=== PATIENT | male | born 1960 | race Caucasian/White ===

== ENCOUNTER 2017-03-12 23:44 | Inpatient (IN) ==
[2017-03-12] MEDS ORDERED: NS 1,000 ML IV ONE (23:48)
[2017-03-13 00:19] LABS: ALLEN TEST YES; BE 14.1 mmoll (-3.0-3.0); BLOOD TYPE ARTERIAL; DRAW SITE R BRACHIAL; METHB 1.1 % (0.0-1.5); O2(CT) 15.6 mL/dL (15.0-23.0); PO2(98.6) 73 mmHg (60-100); SAMPLE BLOOD; pH(98.6) 7.41 (7.35-7.45)
[2017-03-13 00:20] LABS: MODALITY NRB
[2017-03-13 00:22] LABS: PCO2(98.6) 66 mmHg (35-45)
[2017-03-13 00:30] LABS: BASO% 0.1 % (0.0-0.8); EOS# 0.01 X1000 (0.0-0.7); EOS% 0.1 % (0.0-10.0); HEMATOCRIT 42.2 % (42.0-52.0); HEMOGLOBIN 13.2 g/dL (14.0-18.0); IMM GRAN# 0.03 X1000 (0.0-0.04); IMM GRAN% 0.2 % (0.0-0.5); LYMPH% 1.8 % (20.5-51.1); MANUAL DIFF NEEDED? NO; MCH 30.3 PG (27-31); MCHC 31.3 g/dL (33-37); MCV 96.8 FL (81-99); MONO# 1.54 X1000 (0.11-0.59); MONO% 9.3 % (1.7-9.3); MPV 8.9 FL (7.4-10.4); NEUT% 88.5 % (42.2-75.2); PLT 264 X1000 (130-400); RBC 4.36 XMIL (4.7-6.1)
[2017-03-13 00:36] LABS: AGAP 12; ALBUMIN 2.9 g/dL (3.5-5.0); ALKALINE PHOSPHATASE 112 U/L (32-122); BUN 11 mg/dL (8-22); CALCIUM 8.6 mg/dL (8.8-10.2); CHLORIDE 87 mmol/L (98-107); CK PROFILE 19 U/L (24-204); COSMO 276; GOT 21 U/L (10-34); GPT 11 U/L (10-44); MAGNESIUM 2.2 mg/dL (1.5-2.7); POTASSIUM 4.1 mmol/L (3.5-5.1); SODIUM 136 mmol/L (136-145); TCO2 37 mmol/L (25-35); TOTAL BILIRUBIN 0.34 mg/dL (0.20-1.00); TOTAL PROTEIN 6.5 g/dL (6.3-8.3)
[2017-03-13 00:54] LABS: URINE SOURCE CATH
[2017-03-13 01:01] LABS: BILIRUBIN URINE NEGATIVE (NEGATIVE); BLOOD URINE NEGATIVE (NEGATIVE); COLOR YELLOW; GLUCOSE URINE TRACE mg/dL (NEGATIVE); LEUKOCYTES URINE NEGATIVE (NEGATIVE); NITRITE URINE NEGATIVE (NEGATIVE); PH URINE 6.5; PROTEIN URINE 50 mg/dL (NEGATIVE); TURBIDITY URINE CLEAR (CLEAR); URINE MICRO REVIEW NEEDED? YES; UROBILINOGEN URINE NORMAL (NORMAL)
[2017-03-13 01:07] LABS: UR EPITHELIAL CELLS >10 /HPF (<10); URINE BACTERIA NEGATIVE /HPF; URINE CULTURE NEEDED? YES; URINE RBC <10 /HPF (<10)
[2017-03-13 01:10] LABS: UR AMPHETAMINES QUAL NONE DETECTED (NONE DETECT); UR BARBITUATES QUAL NONE DETECTED (NONE DETECT); UR BENZODIAZEPIN QUAL PRESUMPTIVE POSITIVE (NONE DETECT); UR CANNABINOIDS QUAL PRESUMPTIVE POSITIVE (NONE DETECT); UR COCAINE QUAL NONE DETECTED (NONE DETECT); UR METHADONE QUAL NONE DETECTED (NONE DETECT); UR OPIATES QUAL NONE DETECTED (NONE DETECT); UR OXYCODONE QUAL PRESUMPTIVE POSITIVE (NONE DETECT); UR PCP QUAL NONE DETECTED (NONE DETECT)
[2017-03-13 01:19] LABS: URINE CASTS WHITE CELL PRESENT
--- NOTE | 2017-03-13 01:32 | PROVIDER DOCUMENTATION ---
This chart was entered by Kiki Hernández Scribe, acting as scribe for Spencer Boyd MD. HPI-General Adult - General Stated Complaint: PROBLEM BREATHING Time Seen by Provider: 03/12/17 23:45 Source: family, EMS Unable to obtain history due to:: urgency Allergies/Adverse Reactions: Patient Allergies Allergy/AdvReac Type Severity Reaction Status Date / Time fentanyl AdvReac Severe NAUSEA/VOMI Verified 03/13/17 01:07 TING Home Medications: Home Medication List Medication Instructions Recorded Confirmed Last Taken Type Alprazolam 2 mg PO TID PRN MDD 6 03/13/17 03/13/17 03/12/17 19:30 History Dronabinol [Marinol] 5 mg PO QAM 03/13/17 03/13/17 03/12/17 17:00 History Oxycodone HCl 30 mg PO 5XDAY 03/13/17 03/13/17 03/12/17 15:30 History Oxymorphone HCl [Oxymorphone HCl 15 mg PO DAILY 03/13/17 03/13/17 03/11/17 12: 00 History ER] - History of Present Illness -Gen Adult Nature of Presenting Problems: Per EMS, pt was found unresponsive by family. On EMS arrival, pt was unresponsive and breathing 8-9 times per minute. PT was given 4 MG of Zofran and 2 MG of Narcan with little response. En-route pt was given 2 more MG of Narcan. states that she went to visit daughter this evening and came home and the power was off. She states that pt was not acting right then. She states that she moved his oxygen over to the portable one. She states that pt went down from there. Onset/Duration: reports: unsure Timing: reports: still present Similar Symptoms Previously?: No Review of Systems - Adult - REVIEW OF SYSTEMS - ADULT ROS:: unobtainable per condition Constitutional: reports: no symptoms reported Eyes: reports: no symptoms reported Ears, Nose, Mouth & Throat: reports: no symptoms reported Cardiovascular: reports: no symptoms reported Respiratory: reports: no symptoms reported Gastrointestinal: reports: no symptoms reported Genitourinary: reports: no symptoms reported Musculoskeletal: reports: no symptoms reported Integumentary: reports: no symptoms reported Neurological: reports: no symptoms reported Psychiatric: reports: no symptoms reported Endocrine: reports: no symptoms reported Hematologic/Lymphatic: reports: no symptoms reported Allergic/Immunologic: reports: no symptoms reported All Other Systems: Reviewed and Negative Past History - Adult - PAST MEDICAL HISTORY-ADULT Review of Records: reports: Nursing Assessment Review Major Childhood Illnesses: reports: Polio - IMMUNIZATION STATUS Childhood Immunizations: See Nurse Assessment Flu Vaccine: See Nurse Assessment - SOCIAL HISTORY Living Situation: family Physical Exam-General - PHYSICAL EXAM-ADULT Initial Vital Signs Reviewed: Yes - CONSTITUTIONAL General Appearance: cachetic, obtunded - EYES Eyes: other (pupils are large but reactive) - RESPIRATORY Respiratory: lungs clear, normal breath sounds - CARDIOVASCULAR Cardiovascular: tachycardia - GASTROINTESTINAL (ABDOMEN) Abdominal Exam: soft - MUSCULOSKELETAL Extremity: no pedal edema - SKIN Integumentary: normal color, normal turgor, warm/dry Progress - PLAN OF CARE/RESULTS Progress/Plan/Lab Results: Vital Signs - 8 hr 03/12/17 23:50 03/13/17 01:11 03/13/17 01:13 Temperature 97.9 F Pulse Rate 115 H 104 H 123 H Respiratory Rate 15 38 H 26 H Blood Pressure 110/61 97/61 97/61 O2 Sat by Pulse Oximetry 98 99 98 Laboratory Results - last 24 hr 03/12/17 03/12/17 03/13/17 23:46 23:59 00:00 WBC 16.59 H RBC 4.36 L Hgb 13.2 L Hct 42.2 MCV 96.8 MCH 30.3 MCHC 31.3 L RDW Std Deviation 14.7 H Plt Count 264 MPV 8.9 Immature Gran % (Auto) 0.2 Neut % (Auto) 88.5 H Lymph % (Auto) 1.8 L [place] % (Auto) 9.3 Eos % (Auto) 0.1 Baso % (Auto) 0.1 Immature Gran # (Auto) 0.03 Neut # (Auto) 14.69 H Lymph # (Auto) 0.30 L [place] # (Auto) 1.54 H Eos # (Auto) 0.01 Baso # (Auto) 0.02 Specimen Type ARTERIAL Sample Site R BRACHIAL pH 7.41 pCO2 66 H* pO2 73 HCO3 35.6 H Base Excess 14.1 H Oxyhemoglobin 85.3 L* ABG O2 Sat (Calculated) 15.6 ABG O2 Saturation 98.0 ABG Carboxyhemoglobin 11.90 H* ABG Methemoglobin 1.1 Shawn Test YES A-a O2 Difference 558.0 Total Hemoglobin 13.0 Lactate 2.80 H Liter Flow 15.0 Blood Gas Modality NRB FiO2 % 100.0 Sodium Potassium Chloride Carbon Dioxide Anion Gap BUN Creatinine Estimated GFR/1.73 m2 BUN/Creatinine Ratio Glucose Calculated Osmolality Calcium Magnesium Total Bilirubin AST ALT Alkaline Phosphatase Ammonia Creatine Kinase Troponin T Total Protein Albumin Globulin Albumin/Globulin Ratio Urine Source Urine Color Urine Turbidity Urine pH Ur Specific [place] Urine Protein Ur Glucose (Stick) Ur Ketones (Stick) Urine Blood Urine Nitrite Urine Bilirubin Urobilinogen Dipstick Urine Leukocytes Urine WBC (Auto) Urine RBC (Auto) U Epithel Cells (Auto) Urine Bacteria (Auto) Urine Crystals Small Round Cells Urine Casts Urine Yeast-like Cells Urine Opiates Screen Ur Oxycodone Screen Ur Methadone, Qual Ur Barbiturates Screen Ur Phencyclidine Scrn Ur Amphetamines Screen U Benzodiazepines Scrn Urine Cocaine Screen U Cannabinoids Screen Plasma/Serum Ethyl Alc 03/13/17 03/13/17 03/13/17 00:00 00:00 00:00 WBC RBC Hgb Hct MCV MCH MCHC RDW Std Deviation Plt Count MPV Immature Gran % (Auto) Neut % (Auto) Lymph % (Auto) [place] % (Auto) Eos % (Auto) Baso % (Auto) Immature Gran # (Auto) Neut # (Auto) Lymph # (Auto) [place] # (Auto) Eos # (Auto) Baso # (Auto) Specimen Type Sample Site pH pCO2 pO2 HCO3 Base Excess Oxyhemoglobin ABG O2 Sat (Calculated) ABG O2 Saturation ABG Carboxyhemoglobin ABG Methemoglobin Shawn Test A-a O2 Difference Total Hemoglobin Lactate Liter Flow Blood Gas Modality FiO2 % Sodium 136 Potassium 4.1 Chloride 87 L Carbon Dioxide 37 H Anion Gap 12 BUN 11 Creatinine 0.8 Estimated GFR/1.73 m2 > 60 BUN/Creatinine Ratio 14 Glucose 182 H Calculated Osmolality 276 Calcium 8.6 L Magnesium 2.2 Total Bilirubin 0.34 AST 21 ALT 11 Alkaline Phosphatase 112 Ammonia 37 Creatine Kinase 19 L Troponin T 0.012 Total Protein 6.5 Albumin 2.9 L Globulin 3.6 Albumin/Globulin Ratio 0.8 Urine Source Urine Color Urine Turbidity Urine pH Ur Specific [place] Urine Protein Ur Glucose (Stick) Ur Ketones (Stick) Urine Blood Urine Nitrite Urine Bilirubin Urobilinogen Dipstick Urine Leukocytes Urine WBC (Auto) Urine RBC (Auto) U Epithel Cells (Auto) Urine Bacteria (Auto) Urine Crystals Small Round Cells Urine Casts Urine Yeast-like Cells Urine Opiates Screen Ur Oxycodone Screen Ur Methadone, Qual Ur Barbiturates Screen Ur Phencyclidine Scrn Ur Amphetamines Screen U Benzodiazepines Scrn Urine Cocaine Screen U Cannabinoids Screen Plasma/Serum Ethyl Alc 03/13/17 03/13/17 00:20 00:20 WBC RBC Hgb Hct MCV MCH MCHC RDW Std Deviation Plt Count MPV Immature Gran % (Auto) Neut % (Auto) Lymph % (Auto) [place] % (Auto) Eos % (Auto) Baso % (Auto) Immature Gran # (Auto) Neut # (Auto) Lymph # (Auto) [place] # (Auto) Eos # (Auto) Baso # (Auto) Specimen Type Sample Site pH pCO2 pO2 HCO3 Base Excess Oxyhemoglobin ABG O2 Sat (Calculated) ABG O2 Saturation ABG Carboxyhemoglobin ABG Methemoglobin Shawn Test A-a O2 Difference Total Hemoglobin Lactate Liter Flow Blood Gas Modality FiO2 % Sodium Potassium Chloride Carbon Dioxide Anion Gap BUN Creatinine Estimated GFR/1.73 m2 BUN/Creatinine Ratio Glucose Calculated Osmolality Calcium Magnesium Total Bilirubin AST ALT Alkaline Phosphatase Ammonia Creatine Kinase Troponin T Total Protein Albumin Globulin Albumin/Globulin Ratio Urine Source CATH Urine Color YELLOW Urine Turbidity CLEAR Urine pH 6.5 Ur Specific [place] 1.010 Urine Protein 50 A Ur Glucose (Stick) TRACE Ur Ketones (Stick) NEGATIVE Urine Blood NEGATIVE Urine Nitrite NEGATIVE Urine Bilirubin NEGATIVE Urobilinogen Dipstick NORMAL Urine Leukocytes NEGATIVE Urine WBC (Auto) 10-20 A Urine RBC (Auto) <10 U Epithel Cells (Auto) >10 A Urine Bacteria (Auto) NEGATIVE Urine Crystals Not Reportable Small Round Cells Not Reportable Urine Casts WHITE CELL PRESENT Urine Yeast-like Cells Not Reportable Urine Opiates Screen NONE DETECTED Ur Oxycodone Screen PRESUMPTIVE POSITIVE A Ur Methadone, Qual NONE DETECTED Ur Barbiturates Screen NONE DETECTED Ur Phencyclidine Scrn NONE DETECTED Ur Amphetamines Screen NONE DETECTED U Benzodiazepines Scrn PRESUMPTIVE POSITIVE A Urine Cocaine Screen NONE DETECTED U Cannabinoids Screen PRESUMPTIVE POSITIVE A Plasma/Serum Ethyl Alc Orders Category Date Time Status Cornelius Cath Insertion ORDERED Care 03/12/17 23:47 Active CHEST-PORTABLE [RAD] Stat Exams 03/12/17 23:45 Taken HEAD W/O CONTRAST [CT] Stat Exams 03/12/17 23:48 Taken ABG [RESP] Routine Lab 03/12/17 23:46 Completed ALCOHOL BLOOD Stat Lab 03/12/17 23:59 Completed AMMONIA [CHEM] Stat Lab 03/13/17 00:00 Completed CBC WITH ELECTRONIC DIFF [HEME] Stat Lab 03/13/17 00:00 Completed CK PROFILE [SP CHEM] Stat Lab 03/13/17 00:00 Completed CMP [COMPREHENSIVE METABOLIC PANEL] [CHEM] Stat Lab 03/13/17 00:00 Completed MAGNESIUM [CHEM] Stat Lab 03/13/17 00:00 Completed TROPONIN T Stat Lab 03/13/17 00:00 Completed UA NIMS W/REFLEX CULT [URINALYSIS] Stat Lab 03/13/17 00:20 Completed UDS [URINE DRUG SCREEN] Stat Lab 03/13/17 00:20 Completed URINE CULTURE [RM] Routine Lab 03/13/17 01:21 Received URINE MANUAL MICROSCOPIC [URINALYSIS] Stat Lab 03/13/17 00:20 Completed 0.9% Sodium Chloride Inj [Ns] 1,000 ml Med 03/12/17 23:48 Discontinued IV 999 mls/hr EKG [EKG] Stat Ther 03/12/17 23:47 Ordered Result Diagrams: 03/13/17 00:00 03/13/17 00:00 - EKG 1 Time of EKG reading by physician:: 23:41 EKG Read and Signed by:: Spencer Boyd EKG Interpretation (*Must complete 3 of following elements*): Abnormal Rate: 100 Rhythm: sinus tachycardia Comments: unable to read due to artifact - XRAY 1 XRAY Study: Chest Impression: Abnormal (COPD, questionable subtle right lower lobe infiltrate: Dr. Boyd(ER MD)) - CT/MRI 1 CT Study: Head Impression: Abnormal (Normal intracranial contents. Possible lytic metastatic lesion in the right frontal bone: Dr. Mcneal(radiologist)) - CONSULTS/PCP/HOSPITALIST Notification #1 *Consult/PCP/Hospitalist*: Dr. Lundberg(hospitalist) Time Discussed: 01:22 Reason/Comments: consult for admission Consult Disposition: Will see in ED, Admit Departure - Departure Date of Disposition Decision: 03/13/17 Time of Disposition Decision: 01:30 DIAGNOSIS: Altered mental status Qualifiers: Altered mental status type: stupor Qualified Code(s): R40.1 - Stupor Lung cancer Qualifiers: Laterality: unspecified laterality Lung location: unspecified part of lung Qualified Code(s): C34.90 - Malignant neoplasm of unspecified part of unspecified bronchus or lung COPD (chronic obstructive pulmonary disease) Qualifiers: COPD type: unspecified COPD Qualified Code(s): J44.9 - Chronic obstructive pulmonary disease, unspecified Disposition: ADMITTED INPATIENT 09 Certified Medical Emergency: Emergent Condition: Fair Referrals and Follow-Ups: Antonio Diaz MD [Primary Care Provider] - - Critical Care Note This patient required my direct & personal management of CC.: No Attestation - Physician/ NIGEL Attestation Patient care was provided by Advanced Practice Provider:: No The physician spent face to face time with patient:: Yes Advanced Practice Provider documentation review:: Supervising physician onsite and consulted in the evaluation and care of this patient. The physician did have a face to face encounter with the patient. This chart was documented by the indicated scribe, (Kiki Hernández Scribe) and accurately reflects the services I performed and decisions made by me, Spencer Boyd MD, as attested by the provider's signature.
[2017-03-13] MEDS ORDERED: NS 1,000 ML IV ONE ×2 (01:42→02:11)
[2017-03-13] MEDS ORDERED: SOLU-CORTEF IV ONE (01:46)
[2017-03-13] MEDS ORDERED: LANOXIN IV ONE ×2 (01:47→06:00)
--- NOTE | 2017-03-13 02:15 | ED EKG INTERP ---
This chart was entered by Kiki Hernández Scribe, acting as scribe for Spencer Boyd MD. EKG Interpretation - EKG Time of EKG reading by physician:: 01:45 EKG Read and Signed by:: Spencer Boyd EKG Interpretation (*Must complete 3 of following elements*): Abnormal Rate: 146 Rhythm: a-fib with RVR [place]: normal QRS: normal ST Wave: non-specific ST changes Attestation - Physician/ NIGEL Attestation Patient care was provided by Advanced Practice Provider:: No The physician spent face to face time with patient:: Yes Advanced Practice Provider documentation review:: Supervising physician onsite and consulted in the evaluation and care of this patient. The physician did have a face to face encounter with the patient. This chart was documented by the indicated scribe, (Kiki Hernández Scribe) and accurately reflects the services I performed and decisions made by me, Spencer Boyd MD, as attested by the provider's signature.
[2017-03-13] MEDS ORDERED: ZOFRAN IV PRN (02:28)
[2017-03-13] MEDS ORDERED: NEO-SYNEPHRINE 50 MG in NS 250 ML IV SCH (03:00)
[2017-03-13] MEDS: LOVENOX SUBQ SCH (03:00)
[2017-03-13] MEDS: PROTONIX IV SCH (03:01)
[2017-03-13] MEDS: NS 1,000 ML IV SCH ×3 (04:13→21:44)
[2017-03-13] MEDS ORDERED: DUONEB (A & A) INH PRN (06:49)
--- NOTE | 2017-03-13 07:20 | PROGRESS NOTE ---
DATE: 03/13/2017 A 57-year-old, white gentleman, admitted with acute respiratory failure, altered mental status. The patient was found hypoxemic, unresponsive and brought to the emergency room. Evaluated by ER physician. Admitted for further care. The patient is doing fair. The patient is still sedated. Not able to give good history. Patient did have mild cough, no unusual expectoration. No nausea or vomiting. The patient did have mild chills no high-grade fever. Known case of lung cancer, gastritis, chronic pain, post-polio syndrome. PHYSICAL EXAMINATION: Vital signs: Noted. Patient was tachycardic. Neck: Supple. No JVD. Lungs: Bibasilar crepitations. Heart: S1 and S2. Tachycardia. Abdomen: Soft, nontender. Bowel sounds present. 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 ADMISSION LABORATORY DATA: Noted. The patient's urinalysis did reveal 10-20 WBC. Urine drug screen results reviewed. CONSIDERATION.: 1. Respiratory failure. 2. Chronic obstructive pulmonary disease. 3. History of lung cancer. 4. Urinary tract infection. 5. Gastritis. The patient had paroxysmal atrial fibrillation. Overall patient is doing fair. Overall prognosis fair to guarded. I am going to add antibiotics. Patient is already on steroid bronchodilator treatment. Oncologist is going to see the patient. We will check appropriate labs tomorrow. cc: Antonio Diaz MD
--- NOTE | 2017-03-13 07:31 | Diag Imaging Result Doc PS360 ---
EXAM: HEAD W/O CONTRAST - 03/12/2017 HISTORY: ams TECHNIQUE: Dose reduction protocol COMPARISON: None. FINDINGS: There is no evidence of intracranial hemorrhage, mass effect, midline shift, or hydrocephalus. There is no evidence of infarct, although acute infarcts may not be immediately visible. There is an ill-defined 1.2 x 0.6 mm lucent lesion in the right frontal bone. IMPRESSION: Ill-defined 1.2 x 0.6 lucent lesion right frontal bone. This is of uncertain etiology, although metastatic lesion may be a consideration. No visible acute intracranial abnormality otherwise. No hemorrhage or mass effect. The integration engineer radiologist provided primary results at 1:11 AM on 03/13/2017. Electronically signed by Matt Dozier 03/13/2017 7:29 AM
--- NOTE | 2017-03-13 07:35 | EKG Report ---
Test Performed on : 03/13/2017 01:34:23 AM Test Reason : ams Blood Pressure : / mmHG Vent. Rate : 153 BPM Atrial Rate : 060 BPM P-R Int : 000 ms QRS Dur : 076 ms QT Int : 314 ms P-R-T Axes : 000 091 047 degrees QTc Int : 501 ms Atrial fibrillation. with rapid ventricular response. Rightward axis T wave abnormality, consider anterior ischemia Abnormal ECG When compared with ECG of 12-MAR-2017 23:41, (Unconfirmed) Significant changes have occurred Unconfirmed Result
--- NOTE | 2017-03-13 07:35 | EKG Report ---
Test Performed on : 03/12/2017 11:41:37 PM Test Reason : SOB Blood Pressure : / mmHG Vent. Rate : 100 BPM Atrial Rate : 100 BPM P-R Int : 184 ms QRS Dur : 064 ms QT Int : 332 ms P-R-T Axes : 063 088 065 degrees QTc Int : 428 ms Sinus rhythm. with occasional premature ventricular complexes. and premature atrial complexes. Right atrial enlargement Septal infarct , age undetermined Inferior injury pattern ACUTE [place] / STEMI Abnormal ECG No previous ECGs available Unconfirmed Result
--- NOTE | 2017-03-13 07:40 | Diag Imaging Result Doc PS360 ---
EXAM: CHEST-PORTABLE INDICATION: ams TECHNIQUE: One view COMPARISON: None. FINDINGS: A right chest port is in place with the tip projecting over the region of the atriocaval junction in the expected position. There are mild increased interstitial markings bilaterally; however, this may represent mild fibrotic change. No well-defined airspace consolidation can be identified. There is no discrete pleural fluid collection or pneumothorax. The cardiomediastinal silhouette and central vasculature are grossly unremarkable. IMPRESSION: Mild coarse increased interstitial markings bilaterally that may be chronic. Correlate clinically and follow-up if necessary. Electronically signed by Wayne Montenegro 03/13/2017 7:37 AM
[2017-03-13 07:46] LABS: HEMATOCRIT 37.2 % (42.0-52.0); HEMOGLOBIN 11.5 g/dL (14.0-18.0); IMM GRAN# 0.02 X1000 (0.0-0.04); IMM GRAN% 0.1 % (0.0-0.5); LYMPH# 0.33 X1000 (1.2-3.4); LYMPH% 2.4 % (20.5-51.1); MANUAL DIFF NEEDED? YES; MCH 29.9 PG (27-31); MCHC 30.9 g/dL (33-37); MCV 96.9 FL (81-99); MONO# 0.19 X1000 (0.11-0.59); MONO% 1.4 % (1.7-9.3); MPV 8.7 FL (7.4-10.4); NEUT% 96.1 % (42.2-75.2); PLT 286 X1000 (130-400); RBC 3.84 XMIL (4.7-6.1)
[2017-03-13 07:52] LABS: AGAP 6; ALBUMIN 2.4 g/dL (3.5-5.0); ALKALINE PHOSPHATASE 85 U/L (32-122); BUN 9 mg/dL (8-22); CALCIUM 7.8 mg/dL (8.8-10.2); CHLORIDE 96 mmol/L (98-107); COSMO 272; GOT 14 U/L (10-34); GPT 8 U/L (10-44); MAGNESIUM 1.8 mg/dL (1.5-2.7); POTASSIUM 4.2 mmol/L (3.5-5.1); SODIUM 136 mmol/L (136-145); TCO2 34 mmol/L (25-35); TOTAL BILIRUBIN 0.26 mg/dL (0.20-1.00); TOTAL PROTEIN 5.3 g/dL (6.3-8.3)
[2017-03-13] MEDS: ROCEPHIN 1 GM/NS 1 GM/50 ML IVPB IV SCH (07:56)
[2017-03-13 08:11] LABS: BANDS 6 % (0-1); LYMPHS 2 % (21-51); MONO 2 % (1-9)
[2017-03-13] MEDS: SOLU-CORTEF IV SCH ×2 (09:35→18:07)
[2017-03-13] MEDS: ADVAIR 250/50 DISKUS INH SCH ×2 (10:54→19:01)
--- NOTE | 2017-03-13 14:36 | Diag Imaging Result Doc PS360 ---
EXAM: MRI BRAIN W W/O CONTRAST - 03/13/2017 HISTORY: r/o lesion TECHNIQUE: Images are obtained prior to and following Omniscan administration. COMPARISON: 05/30/2016 FINDINGS: There are artifacts from motion which limit detail, particularly on the contrast-enhanced images. There are mild chronic microvascular ischemic changes. The diffusion weighted images show no areas of restricted diffusion (no evidence of acute infarct). There is no hemorrhage, mass effect, midline shift, or hydrocephalus identified. There is no abnormal enhancement identified. The lucent lesion at the right frontal bone which was seen on the earlier CT head from today (03/13/2017) is less apparent on this exam, but this could relate to greater sensitivity of CT for detecting small lucent skull lesions. IMPRESSION: Some limitation of detail due to artifacts from motion. Mild chronic microvascular ischemic changes. No visible acute intracranial abnormality. Electronically signed by Matt Dozier 03/13/2017 2:34 PM
[2017-03-13] MEDS: DUONEB (A & A) INH PRN (15:22)
--- NOTE | 2017-03-13 16:58 | CONSULTATION ---
DATE OF CONSULTATION: 03/13/2017 CONSULTATION IS FOR: Non-small cell lung cancer, patient known. HISTORY OF PRESENT ILLNESS: Mr. Nunes is a 57-year-old male who is known to us as we have treated him for non-small cell lung cancer. He has most recently been our office on 03/02/2017 at which time he was doing well. He has had some recent scans on which showed no evidence of residual disease. The patient is status post chemoradiation and then most recently stereotactic radiation. The patient was at home with his . He is on home O2. His reports that she had left the home for awhile when the electricity went out in the entire neighborhood. The patient was using oxygen machine that was powered by electricity. The reports she rushed home to make sure that he transitioned to a portable oxygen tank. Around that time she said that he was acting somewhat confused. She then reports as night went on he started to get more and more confused. She continue to check his O2 saturation and reports that when she called the ambulance it was down into the 50s. The patient was transferred to the hospital. He is now in the ICU. Head CT has been completed and does show him to have a 1.2 x 0.6 right frontal bone lesion. Patient is also found to be in atrial fibrillation with RVR upon presentation. Chest x-ray shows some mild coarse increased interstitial markings bilaterally that may be chronic. PAST MEDICAL HISTORY: 1. COPD. 2. Peripheral vascular disease. 3. Chronic back pain. 4. Anxiety. 5. Gastritis. 6. Postpolio syndrome. 7. Nonmelanoma skin cancer. 8. Non-small cell lung cancer. SURGICAL HISTORY: Femoral artery bypass in 2016. SOCIAL HISTORY: Patient is and lives with his . He has 3 children. He is a current every day smoker. He smoked for the past 44 years about 1 and half packs per day. The patient is a former alcohol user but stopped drinking in 2005. Denies any illicit drug use. FAMILY HISTORY: His mother at the age of 42 with breast cancer. His father at the age of 52 of heart disease. He has 1 brother who at the age of 62 with lymphoma. REVIEW OF SYSTEMS: Ten point review of systems has been completed and is negative except for is as per the HPI. PHYSICAL EXAMINATION: Vital Signs: Temperature 98.7 degrees, heart rate 56, respirations 19, blood pressure 105/55, O2 saturation 95% on 4 L nasal cannula. General: Thin male lying in hospital bed in the intensive care unit. He is resting comfortably. Does not appear to be agitated. HEENT: Head appears to be normocephalic, normocephalic atraumatic. Pupils are equal, round, reactive. Neck is supple. Oral mucosa appears to be normal. Cardiovascular: Irregularly irregular. Respiratory: Patient has bilateral coarse breath sounds with some wheezing. Abdomen: Soft, nontender. Positive bowel sounds. Musculoskeletal : Postpolio syndrome changes noted. No edema noted. Neurologic: Patient is arousable and when he is he is alert and oriented. No focal motor deficits noted. LABS AND STUDIES: White blood cells 13.67, hemoglobin 11.5, hematocrit 37.2, platelets 286,000. Sodium 136, potassium 4.2, chloride 96, CO2 is 34, BUN is 9, creatinine 0.6, glucose 114. Chest x- ray and CT scan as per the HPI. ASSESSMENT AND PLAN: 1. Non-small cell squamous cell lung cancer. Patient is now status post chemoradiation which he had his last chemo treatment on 07/17/2016 and finished his 1st radiation . He completed stereotactic radiation on 12/31/2016. Most recent scan a couple weeks ago noted that he had no evidence of residual or recurrent disease. 2. Respiratory failure. Patient will continue on O2 support. He is also receiving antibiotics, nebulizer treatments and IV steroids. 3. Chronic obstructive pulmonary disease. As per above. 4. Right frontal bone lesion. He still has to get a brain MRI which has been ordered but has not been completed yet. Follow up on the results. 5. Urinary tract infection. Continue IV antibiotics. 6. Gastritis. Continue on GI prophylaxis. 7. Paroxysmal atrial fibrillation. Continue Cardizem drip. Consider Cardiology consultation. The patient has also received digoxin. We want to thank you for consulting us on Mr. Nunes. Will continue to follow along and adjust our treatment plan per his hospital course. Dictated by TAMARA Hubbard for Galina Rollins MD cc: MD Antonio Simon MD I have seen and examined the patient and agree with above A/P. MRI pending. No clear evidence of residual or recurrent lung cancer unless those results confirm a bony lesion. Galina Rollins MD [facility]
--- NOTE | 2017-03-13 18:22 | ECHO REPORT ---
ORDER DATE: 03/13/2017 INTERPRETING PHYSICIAN: Dr. Olivas REQUESTING PHYSICIAN: CLINICAL INDICATIONS: Atrial fibrillation with rapid response, respiratory failure. M-MODE MEASUREMENTS: Right ventricle: 3.0 cm. Left ventricle end diastole: 4.7 cm. Left ventricle end systole: 3.4 cm. Posterior wall: 0.8 cm. Interventricular septum: 0.8 cm. Left atrium: 3.5 cm. Aortic root: 3.6 cm. SUMMARY OF 2-DIMENSIONAL IMAGING: The left ventricular function appears to be normal. Ejection fraction is somewhere in the range of 55-60%. No wall motion abnormality is noted. The right ventricle is enlarged moderately and it shows impairment of its free wall. The basal to midportion of the free wall of the right ventricle is hypokinetic to even akinetic. The true apical segment of the right ventricle appears to be slightly hyperdynamic. The inferior vena cava is mildly enlarged. The tricuspid valve shows a mild degree of regurgitation. Pulmonary pressure estimated at 52-57 mmHg. The pulmonic valve appears to be grossly normal. The aortic valve has 3 cusps. They open normally. Color flow mapping unremarkable. The mitral valve looks normal. Color flow mapping unremarkable. Pulse wave Doppler of mitral inflow is normal. Tissue Doppler of septal and lateral mitral annulus averages 9 cm per second. There is no diastolic dysfunction. There is no pericardial effusion, masses or thrombus. IMPRESSION: In summary, this study shows: 1. Normal left ventricular systolic function. 2. Enlargement of right ventricle of moderate degree with hypokinesis of the midsegment of the free wall. 3. Moderate pulmonary hypertension estimated to be in the range of 52-57 mmHg. 4. No diastolic dysfunction. Clinical correlation recommended. cc: MD Maverick Foster CRNP Bharat K. Vakharia, MD
[2017-03-13] MEDS ORDERED: DILAUDID IV PRN (20:00)
[2017-03-13] MEDS: OXY IR PO PRN (23:55)
--- NOTE | 2017-03-14 02:41 | HISTORY AND PHYSICAL ---
CHIEF COMPLAINT: Difficulty breathing. PRIMARY CARE PROVIDER: Dr. Diaz. ONCOLOGIST: Dr. Galina Rollins. HISTORY OF PRESENT ILLNESS: Mr. Nunes is an unfortunate 57-year-old male with a history of a right small cell lung cancer. He was apparently treated with chemotherapy for a couple of treatments and then had difficulties and was ultimately stopped. He then underwent several radiation treatments by Dr. Mejia which I believe he finished in August of this year. He has been on chronic pain medications. He has been on multiple opioid pain medications and today per EMS the patient was found unresponsive by the family. When EMS arrived, patient was breathing around 8 times per minute. He was given Narcan and Zofran which were was not effective. En route, the patient was given 2 more milligrams of Narcan. While in the emergency room, the patient's heart rate elevated and he converted into atrial fibrillation with a rapid ventricular rate and became hypotensive. He had received a CT scan of the head at that time which showed a possible lytic lesion in the right frontal bone. At any rate, fluid bolusing was administered in the emergency room as well as a dose of digoxin and Solu-Cortef. He will be admitted to ICU for further evaluation and treatment. PAST MEDICAL HISTORY: 1. Right small cell lung cancer. 2. COPD. 3. Severe peripheral vascular disease. 4. Chronic back pain. 5. Anxiety. 6. Gastritis. 7. Situational depression. 8. Post-polio syndrome. PAST SURGICAL HISTORY: Right femoral-femoral bypass in early 2015. FAMILY HISTORY: Mother had breast cancer, at I believe age 42. Father with myocardial infarction in his 50s as well as TB. SOCIAL HISTORY: , lives with his . Continues to smoke. Has been a long-standing heavy smoker. No alcohol or illicit drug use or abuse. ALLERGIES: Fentanyl and morphine. HOME MEDICATIONS: 1. Oxymorphone HCl 15 mg p.o. 2. Oxycodone 30 mg p.o. 5 times daily. 3. Alprazolam 2 mg p.o. t.i.d. p.r.n. 4. Marinol 5 mg p.o. q.a.m. 5. Phenergan 25 mg p.o. q.6 p.r.n. REVIEW OF SYSTEMS: Fourteen point review of systems could not be obtained as patient is obtunded in the emergency room. Pertinent positives for admission are listed above in the HPI. PHYSICAL EXAMINATION: VITAL SIGNS: Temperature 97.9 degrees, pulse 140s, atrial fibrillation, respirations 22, blood pressure on arrival was 110/61 and as low as 66/48. Oxygen saturation 92% on 6 L nasal cannula. GENERAL: Unfortunate 57-year-old male lying in the ER stretcher obtunded. Family at bedside. Chronically ill-appearing. HEENT: Head is atraumatic, normocephalic. Pupils 3 cm and sluggishly reactive but noted to be miotic. Extraocular eye movement could not be assessed. Sclerae anicteric. Oral mucosa is dry. NECK: Supple. No JVD. Trachea is midline. No carotid bruit on auscultation. CARDIAC: Irregularly irregular. No murmurs, gallops, rubs. Heart tones are noted to be very distant. LUNGS: Decreased bilaterally. No rhonchi, wheezes or rales. Symmetrical rise and fall with respirations. ABDOMEN: Scaphoid and nontender. Bowel sounds hypoactive all 4 quadrants. No organomegaly. No pulsatile mass. EXTREMITIES: No clubbing, cyanosis. Bilateral pedal pulses very decreased. NEUROLOGICAL: The patient is responsive to pain, otherwise obtunded. DIAGNOSTIC DATA: WBC 16.59, hemoglobin 13.2, hematocrit 42.2, platelet count 264,000. ABG: pH 7.41, pCO2 66, PO2 73, bicarb 35.6. Sodium 136, potassium 4.1, chloride 87, carbon dioxide 37, BUN 11, creatinine 0.8, glucose 182. Urine unremarkable. Toxicology screen positive for oxycodone, benzodiazepine and cannabinoids. CT of the head showed an ill- defined 1.2 x 0.60 lytic lesion to the right frontal bone but no acute intracranial abnormality. Chest x -ray, chronic COPD changes. ASSESSMENT AND PLAN: 1. Toxic encephalopathy, possibly secondary to narcotic use secondary to lung cancer. Altered mental status could also be secondary to metastatic disease. An MRI will be needed to rule this out. 2. Right small cell lung cancer. Brief chemotherapy was attempted. Patient did complete radiation treatment. We will consult Dr. Galina Rollins. 3. Chronic obstructive pulmonary disease without exacerbation. 4. History of post-polio syndrome. 5. Chronic pain syndrome. 6. Anxiety with situational depression. 7. New onset atrial fibrillation with a rapid ventricular rate. PLAN: Aggressive IV hydration was started in the emergency room. We will continue fluids in ICU. As noted above, we will consult Dr. Galina Rollins. Dr. Diaz, his primary care provider, will resume care in the morning. Continue Solu-Cortef 50 mg IV q.8 hours. MRI will likely be needed in a.m. to differentiate reasons for altered mental status. We will order Nico- Synephrine if needed for hypotension. We will hold pain medication at this time. Digoxin was given in the emergency room. We will give an additional dose to be repeated in 4 hours if heart rate is still greater than 110. Further recommendations per patient clinical course history. CRITICAL CARE TIME: On this patient, 45 minutes. Dictated by LIBBY Cartwright for Almita Lundberg MD Seen and examined pt ; discussed case with DRAWING CHECKER. cc: MD Maverick Simon CRNP [place] P. Akinsoto, MD Bharat K. Vakharia, MD MTDD
[2017-03-14] MEDS: SOLU-CORTEF IV SCH (02:54)
[2017-03-14] MEDS: LOVENOX SUBQ SCH ×2 (02:55→23:47)
[2017-03-14] MEDS: PROTONIX IV SCH ×2 (02:55→23:47)
[2017-03-14] MEDS: CARDIZEM 100 MG/NS 100 MG/100 ML IVPB IV SCH ×2 (03:02→05:44)
[2017-03-14 04:52] LABS: ALLEN TEST YES; BE 6.3 mmoll (-3.0-3.0); BLOOD TYPE ARTERIAL; DRAW SITE R RADIAL; METHB 0.2 % (0.0-1.5); O2(CT) 18.8 mL/dL (15.0-23.0); PO2(98.6) 73 mmHg (60-100); SAMPLE BLOOD; SAO2 98.8 % (95.0-100.0); THB 14.1 g/dL (11.5-17.4); pH(98.6) 7.37 (7.35-7.45)
[2017-03-14 04:53] LABS: MODALITY VENTIMASK; PCO2(98.6) 58 mmHg (35-45)
[2017-03-14 05:14] LABS: HEMATOCRIT 34.7 % (42.0-52.0); HEMOGLOBIN 10.9 g/dL (14.0-18.0); LYMPH# 0.47 X1000 (1.2-3.4); LYMPH% 5.1 % (20.5-51.1); MANUAL DIFF NEEDED? NO; MCHC 31.4 g/dL (33-37); MCV 95.6 FL (81-99); MONO# 0.52 X1000 (0.11-0.59); MONO% 5.7 % (1.7-9.3); MPV 8.8 FL (7.4-10.4); NEUT% 89.2 % (42.2-75.2); PLT 249 X1000 (130-400); RBC 3.63 XMIL (4.7-6.1)
[2017-03-14 05:34] LABS: AGAP 8; ALBUMIN 2.1 g/dL (3.5-5.0); ALKALINE PHOSPHATASE 66 U/L (32-122); BUN 11 mg/dL (8-22); CALCIUM 7.5 mg/dL (8.8-10.2); CHLORIDE 98 mmol/L (98-107); COSMO 279; GOT 12 U/L (10-34); GPT 6 U/L (10-44); MAGNESIUM 1.8 mg/dL (1.5-2.7); POTASSIUM 3.7 mmol/L (3.5-5.1); SODIUM 139 mmol/L (136-145); TCO2 33 mmol/L (25-35); TOTAL BILIRUBIN 0.15 mg/dL (0.20-1.00); TOTAL PROTEIN 4.2 g/dL (6.3-8.3)
[2017-03-14] MEDS: NS 1,000 ML IV SCH ×3 (05:45→21:56)
[2017-03-14] MEDS ORDERED: PHENERGAN PO PRN (06:37)
[2017-03-14] MEDS: SOLU-MEDROL IV SCH ×3 (07:04→21:56)
[2017-03-14] MEDS: ROCEPHIN 1 GM/NS 1 GM/50 ML IVPB IV SCH (07:05)
[2017-03-14] MEDS: CARAFATE LIQUID PO SCH ×4 (07:15→23:46)
[2017-03-14] MEDS: ADVAIR 250/50 DISKUS INH SCH ×2 (08:12→23:14)
[2017-03-14] MEDS: NICODERM PATCH TD PRN (08:16)
[2017-03-14] MEDS: MARINOL PO SCH (08:17)
[2017-03-14] MEDS: XANAX PO PRN (08:17)
[2017-03-14] MEDS: OXY IR PO PRN ×3 (08:23→23:44)
[2017-03-14] MEDS ORDERED: OXYCODONE HCL 30 MG PO SCH (09:00)
--- NOTE | 2017-03-14 10:01 | PROGRESS NOTE ---
DATE: 03/14/2017 A 57-year-old gentleman admitted with altered mental status, hypoxemia. Admission history and physical noted. The patient is doing much better, more alert and awake. Complaining of chronic pain. Oxygenation is better. No nausea or vomiting. Patient did have at time bradycardia, but patient was asymptomatic. No diarrhea, blood, or mucus in the stool. Oncology consult reviewed. PAST MEDICAL HISTORY: Significant for lung cancer, chronic pain, gastritis, peripheral vascular disease, situational depression, post-polio syndrome. CURRENT MEDICATIONS: Noted. PHYSICAL EXAMINATION: Vital Signs: Reviewed. Neck: Supple. No JVD. Lungs: Bibasilar crepitations. Occasional wheezing. Cardiovascular: S1 and S2 heard. Bradycardia. Abdomen: Soft, scaphoid. Bowel sounds present. Extremities: No cyanosis, clubbing. No acute DVT. Central Nervous System: Alert, awake. Answering questions fairly well. LABORATORY DATA: Done today, hemoglobin 10.9, hematocrit 34.7, WBC count 9.17. Platelet count 249. Blood gas: pH 7.37, pCO2 58, PO2 was 73. Electrolytes fairly benign. CONSIDERATION: Acute hypoxemic respiratory failure, chronic obstructive pulmonary disease, gastritis, lung cancer, chronic pain, bronchitis. The patient's CT of the head was abnormal. We did an MRI, which did reveal chronic microvascular ischemic changes. Chest x-ray was mild increase in interstitial markings bilaterally, which could be chronic. PLAN: Patient is on IV steroid. I put him on antibiotics, pulmonary toilet. We will continue current treatment. I am going to transfer him to telemetry bed. Overall plan discussed with the patient and family, and they are in agreement. Will do a NicoDerm patch. cc: Antonio Diaz MD
[2017-03-14] MEDS: PATIENT'S OWN MED PO SCH (10:16)
[2017-03-14] MEDS: SODIUM CHLORIDE 0.9% INJ SCH (23:47)
[2017-03-15] MEDS: LOVENOX SUBQ SCH ×2 (04:19→23:34)
[2017-03-15] MEDS: PROTONIX IV SCH ×2 (04:20→23:34)
[2017-03-15] MEDS: OXY IR PO PRN ×3 (04:29→23:33)
[2017-03-15] MEDS: ROCEPHIN 1 GM/NS 1 GM/50 ML IVPB IV SCH (06:00)
[2017-03-15] MEDS: SOLU-MEDROL IV SCH ×3 (06:00→23:34)
[2017-03-15] MEDS: NS 1,000 ML IV SCH ×2 (06:00→13:53)
[2017-03-15] MEDS: CARAFATE LIQUID PO SCH ×4 (06:01→23:34)
[2017-03-15 06:58] LABS: BASO% 0.2 % (0.0-0.8); EOS# 0.01 X1000 (0.0-0.7); EOS% 0.2 % (0.0-10.0); HEMOGLOBIN 11.4 g/dL (14.0-18.0); IMM GRAN# 0.08 X1000 (0.0-0.04); IMM GRAN% 1.2 % (0.0-0.5); LYMPH# 0.37 X1000 (1.2-3.4); LYMPH% 5.7 % (20.5-51.1); MANUAL DIFF NEEDED? YES; MCH 29.5 PG (27-31); MCHC 30.8 g/dL (33-37); MCV 95.9 FL (81-99); MONO# 0.22 X1000 (0.11-0.59); MONO% 3.4 % (1.7-9.3); MPV 8.9 FL (7.4-10.4); NEUT% 89.3 % (42.2-75.2); PLT 244 X1000 (130-400); RBC 3.86 XMIL (4.7-6.1)
[2017-03-15 07:26] LABS: AGAP 9; ALBUMIN 2.2 g/dL (3.5-5.0); ALKALINE PHOSPHATASE 64 U/L (32-122); BUN 15 mg/dL (8-22); CALCIUM 7.7 mg/dL (8.8-10.2); CHLORIDE 100 mmol/L (98-107); COSMO 283; GOT 16 U/L (10-34); GPT 10 U/L (10-44); MAGNESIUM 1.8 mg/dL (1.5-2.7); POTASSIUM 4.2 mmol/L (3.5-5.1); SODIUM 140 mmol/L (136-145); TCO2 31 mmol/L (25-35); TOTAL BILIRUBIN < 0.10 mg/dL (0.20-1.00); TOTAL PROTEIN 4.3 g/dL (6.3-8.3)
--- NOTE | 2017-03-15 07:51 | Diag Imaging Result Doc PS360 ---
EXAM: CHEST-PORTABLE - 03/15/2017 HISTORY: dyspnea TECHNIQUE: Portable chest 0545 COMPARISON: 03/13/2017 FINDINGS: Heart size is normal. There are COPD changes. There is apparent increased opacity of the left lingula which may relate to infiltrate and/or atelectasis. There are no other interval changes identified. There is no pneumothorax identified. Central venous catheter remains in place. IMPRESSION: COPD. Infiltrate or atelectasis at left lingula. Pneumonia at the lingula cannot be excluded. Electronically signed by Mtat Dozier 03/15/2017 7:48 AM
[2017-03-15] MEDS: ADVAIR 250/50 DISKUS INH SCH ×2 (07:53→19:10)
[2017-03-15 07:54] LABS: BANDS 2 % (0-1); LYMPHS 8 % (21-51)
[2017-03-15] MEDS: PATIENT'S OWN MED PO SCH (10:17)
[2017-03-15] MEDS: MARINOL PO SCH (10:17)
--- NOTE | 2017-03-15 14:41 | PROGRESS NOTE ---
DATE: 03/15/2017 SUBJECTIVE: The patient says he is feeling a little bit better. Just had a breathing treatment. Seems to be breathing pretty well at this time. OBJECTIVE: Vital signs: Blood pressure is 140/73, respirations 18, pulse 56 and regular, temperature 97.4 degrees Fahrenheit. HEENT: Normocephalic. EOMs intact. PERRLA. Throat clear. Lungs: Fairly clear to auscultation and percussion without rhonchi, rales or wheezes at this time. Heart: Regular rate rhythm without murmurs, gallops, friction rubs. Abdomen: Soft. Active bowel sounds. No organomegaly or tenderness. Neurological: Intact grossly. DIAGNOSTIC DATA: Chest x-ray shows some clearing, is stable, perhaps a little infiltrate in the left lingula but that was questionable. Patient is on IV antibiotics. ASSESSMENT: 1. Hypoxemia with acute respiratory failure. 2. Chronic obstructive pulmonary disease. 3. Lung cancer. 4. Chronic pain syndrome. 5. Gastritis. PLAN: We will continue IV antibiotics. The patient is on a NicoDerm patch. cc: MD Antonio Rogers Jr, MD
[2017-03-15] MEDS: SODIUM CHLORIDE 0.9% INJ SCH (23:34)
[2017-03-15] MEDS: XANAX PO PRN (23:34)
[2017-03-16] MEDS: LOVENOX SUBQ SCH (04:02)
[2017-03-16] MEDS: CARAFATE LIQUID PO SCH ×5 (04:02→22:23)
[2017-03-16] MEDS: PROTONIX IV SCH (04:03)
[2017-03-16] MEDS: NS 1,000 ML IV SCH ×2 (04:04→05:34)
[2017-03-16] MEDS: SOLU-MEDROL IV SCH (05:34)
[2017-03-16] MEDS: ROCEPHIN 1 GM/NS 1 GM/50 ML IVPB IV SCH ×2 (05:34→07:42)
[2017-03-16] MEDS: XANAX PO PRN ×3 (05:40→22:13)
[2017-03-16] MEDS ORDERED: LASIX IV ONE (06:24)
--- NOTE | 2017-03-16 06:43 | PROGRESS NOTE ---
DATE: 03/16/2017 SUBJECTIVE: Mr. Nunes is doing fair, complaining of fluid retention and swelling. Does have cough with scanty sputum production. Oral intake is fair. No nausea or vomiting. Denied any chest pain. The patient does have generalized pain. Chest x-ray did reveal possible infiltrate and/or atelectasis left lingula. The patient's vital signs noted. At times bradycardic, but tolerating medication well.Neck: Supple. No JVD. Lungs: Bibasilar crepitation. Heart: S1 and S2 heard. Abdomen: Soft, nontender. Bowel sounds present. No acute DVT. Extremities: The patient does have post-polio syndrome. PLAN: 1. For a consideration, acute hypoxemic respiratory failure clinically doing better. The patient is still on Venti mask, O2 saturation is satisfactory. I am going to change him on nasal cannula give him small dose of Lasix for fluid retention. 2. Pneumonia the patient is on IV antibiotics which will continue. I am going to add Zithromax. 3. Lung cancer. 4. Bradycardia tolerating medication well. 5. Anxiety. 6. Tobacco abuse. 7. Gastritis. Labs and medication noted. I am going to stop IV Solu-Medrol. Will try prednisone. Patient is eager to go home. We will prepare patient for possible discharge soon. Oncologist ordered bone scan. cc: Antonio Diaz MD
[2017-03-16] MEDS: ADVAIR 250/50 DISKUS INH SCH ×2 (08:04→19:20)
[2017-03-16] MEDS: ZITHROMAX PO SCH (08:32)
[2017-03-16] MEDS: MARINOL PO SCH (08:32)
[2017-03-16] MEDS: PREDNISONE PO SCH (08:32)
[2017-03-16] MEDS: PATIENT'S OWN MED PO SCH (09:40)
--- NOTE | 2017-03-16 12:35 | Diag Imaging Result Doc PS360 ---
EXAM: BONE SCAN, TOTAL BODY INDICATION: lung cancer, abnormal skull lesion TECHNIQUE: 30.9 mCi of technetium 99 MDP was administered intravenously and whole-body images were obtained in the usual fashion post administration. COMPARISON: No prior bone scan is available for comparison. FINDINGS: There is no abnormal focal photopenia or focal increased uptake identified throughout the entire skeleton. Specifically, no abnormal skull activity is identified to correspond to the right frontal lucency seen on a recent CT. There is normal soft tissue uptake and there is normal excretion of radiotracer by the system. IMPRESSION: Grossly normal nuclear medicine bone scan. Electronically signed by Wayne Montenegro 03/16/2017 12:32 PM
[2017-03-16] MEDS: NICODERM PATCH TD PRN (14:16)
[2017-03-16] MEDS: OXY IR PO PRN ×2 (16:07→22:13)
--- NOTE | 2017-03-16 16:56 | PROGRESS NOTE ---
DATE: 03/16/2017 SUBJECTIVE: Mr. Nunes is sitting up in his hospital bed. He has family at bedside. He reports that he is doing well and really wants to go home. OBJECTIVE: Vital Signs: Temperature 97.6 degrees, heart rate 51, respirations 20, blood pressure 147/73, O2 saturation 96% on Venturi mask at 15%. LABS: No new labs for today. He did have a bone scan which was done earlier today which shows to be grossly normal nuclear medicine bone scan. There is no abnormal skull activity in the corresponding right frontal lesion seen on previous CT scan. PHYSICAL EXAMINATION: CV: S1, S2 heard. Bradycardia. Regular rhythm. Respiratory: Some coarse breath sounds bilaterally. Some scant wheezing. No rhonchi or rales noted. Gastrointestinal: Abdomen soft, nontender, nondistended with positive bowel sounds. Extremities: Trace bilateral extremity edema noted. ASSESSMENT AND PLAN: 1. Non-small cell squamous cell lung cancer. Patient status post chemotherapy , radiation as well as recent stereotactic radiation. Most recent scans done in mid February showed no evidence of recurrence. Scans here continue show no evidence of recurrent disease. Most recent bone scan as per above shows no evidence of recurrence. 2. Respiratory failure secondary to pneumonia. Continue O2 support. IV antibiotics. IV steroids. Nebulizer treatments. 3. Chronic obstructive pulmonary disease. As per above. 4. Right frontal bone lesion. Bone scan as per above shows no evidence of metastatic disease. 5. Urinary tract infection. Continue antibiotics. 6. Paroxysmal atrial fibrillation. Patient is rate controlled at this time. Dictated by TAMARA Hubbard for Galina Rollins MD cc: MD Antonio Simon MD I have seen and examined the patient and agree with the above A/P. Galina Rollins MD. DEV
[2017-03-17] MEDS: CARAFATE LIQUID PO SCH ×5 (00:18→17:43)
[2017-03-17] MEDS: ROCEPHIN 1 GM/NS 1 GM/50 ML IVPB IV SCH (06:04)
[2017-03-17] MEDS: PROTONIX IV SCH (06:04)
[2017-03-17] MEDS: LOVENOX SUBQ SCH (06:04)
[2017-03-17 06:58] LABS: MANUAL DIFF NEEDED? NO
[2017-03-17 07:12] LABS: HEMATOCRIT 43.1 % (42.0-52.0); HEMOGLOBIN 13.9 g/dL (14.0-18.0); LYMPH# 0.94 X1000 (1.2-3.4); LYMPH% 10.2 % (20.5-51.1); MCH 29.8 PG (27-31); MCHC 32.3 g/dL (33-37); MCV 92.5 FL (81-99); MONO# 0.81 X1000 (0.11-0.59); MONO% 8.8 % (1.7-9.3); MPV 9.1 FL (7.4-10.4); PLT 268 X1000 (130-400); RBC 4.66 XMIL (4.7-6.1)
--- NOTE | 2017-03-17 07:23 | PROGRESS NOTE ---
DATE: 03/17/2017 SUBJECTIVE: Mr. Nunes is doing better. Mild cough, no expectoration. Shortness of breath is improving. No nausea or vomiting. I discontinued his Cornelius catheter. The patient is urinating well. His O2 saturation is satisfactory. The patient is still on oxygen via a Ventimask. I am going to try a nasal cannula so we can discharge him today. No diarrhea, blood or mucus in the stool. PHYSICAL EXAMINATION: Vital Signs: His vital signs noted. Neck: Supple. No JVD. Lungs: Bilateral good air entry present. Bibasilar crepitation. Occasional wheezing. CVS: S1 and S2 heard. Abdomen: Soft, globular. Bowel sounds present. Extremities: No cyanosis, clubbing. RECREATION PROGRAM COORDINATOR: Alert, awake. Able to move all 4 limbs. Patient does have postpolio syndrome. LABORATORY DATA: A.m. lab data pending. PLAN: Plan is to change him to oxygen via nasal cannula. His bone scan results reviewed and discussed with the patient. If clinical condition permits, I am planning to discharge patient home this evening. PROBLEM LIST: 1. Pneumonia. 2. Chronic obstructive pulmonary disease exacerbation. 3. History of lung cancer. 4. Failure to thrive. 5. Gastritis. cc: Antonio Diaz MD
[2017-03-17 07:46] LABS: AGAP 9; ALBUMIN 2.5 g/dL (3.5-5.0); ALKALINE PHOSPHATASE 64 U/L (32-122); BUN 19 mg/dL (8-22); CHLORIDE 98 mmol/L (98-107); COSMO 281; GOT 29 U/L (10-34); GPT 21 U/L (10-44); MAGNESIUM 1.6 mg/dL (1.5-2.7); POTASSIUM 2.8 mmol/L (3.5-5.1); SODIUM 140 mmol/L (136-145); TCO2 33 mmol/L (25-35); TOTAL BILIRUBIN 0.19 mg/dL (0.20-1.00); TOTAL PROTEIN 5.1 g/dL (6.3-8.3)
[2017-03-17] MEDS: ZITHROMAX PO SCH (08:08)
[2017-03-17] MEDS: MARINOL PO SCH (08:08)
[2017-03-17] MEDS: PREDNISONE PO SCH (08:09)
[2017-03-17] MEDS: PATIENT'S OWN MED PO SCH (08:09)
[2017-03-17] MEDS: ADVAIR 250/50 DISKUS INH SCH ×2 (09:29→20:03)
[2017-03-17] MEDS: DUONEB (A & A) INH PRN ×3 (09:29→22:11)
[2017-03-17] MEDS: OXY IR PO PRN ×4 (11:30→21:04)
[2017-03-17] MEDS ORDERED: CALAMINE LOTION TOP PRN (16:29)
[2017-03-17] MEDS ORDERED: MAGNESIUM SULFATE 2 GM/S.W.I. 2 GM/50 ML IVPB IV ONE (17:15)
[2017-03-17] MEDS ORDERED: CALMOSEPTINE OINTMENT TOP PRN (17:15)
[2017-03-17] MEDS ORDERED: KLOR-CON PO ONE (17:16)
[2017-03-17] MEDS: POTASSIUM CHLORIDE 20 MEQ/SWI 20 MEQ/100 ML IVPB IV SCH ×2 (17:52→21:04)
[2017-03-17] MEDS: XANAX PO PRN (21:05)
[2017-03-18] MEDS: CARAFATE LIQUID PO SCH ×2 (00:09→06:47)
[2017-03-18] MEDS: XANAX PO PRN (00:40)
[2017-03-18] MEDS: ROCEPHIN 1 GM/NS 1 GM/50 ML IVPB IV SCH ×2 (06:47→08:38)
[2017-03-18] MEDS: PROTONIX IV SCH (06:47)
[2017-03-18] MEDS: OXY IR PO PRN (06:57)
[2017-03-18] MEDS: LOVENOX SUBQ SCH (07:03)
--- NOTE | 2017-03-18 07:13 | DISCHARGE SUMMARY ---
ADMISSION DATE: 03/13/2017 DISCHARGE DATE: 03/18/2017 FINAL DISCHARGE DIAGNOSES: 1. Acute hypoxemic respiratory failure. 2. Chronic obstructive pulmonary disease exacerbation. 3. Gastritis and reflux disease. 4. Hypokalemia. 5. History of chronic pain. 6. Post-polio syndrome. 7. Non-small cell lung cancer. 8. Peripheral vascular disease. 9. Anxiety. HISTORY OF PRESENT ILLNESS: Mr. Nunes, a 57-year-old, white gentleman, found unresponsive and hypoxemic at home. called EMS. When they arrived, his O2 saturation was very low. The patient was started on oxygen and brought to the emergency room. Evaluated by ER physician. Admitted for further care. HOSPITAL COURSE: Initially patient was admitted to ICU. Initial CT scan did reveal a 1.2 x 0.6 cm lucent lesion in the right frontal lobe of uncertain etiology. The patient underwent MRI and then the bone scan but not able to see the same lesion on these 2 modalities of investigation. Patient was given IV steroid, IV antibiotics, pulmonary toilet. His clinical condition gradually improved. Chest x-ray did reveal possible pneumonia. The patient's clinical condition stabilized, transferred to the floor. The patient's potassium was low yesterday. Magnesium was low normal. The patient was given magnesium and potassium supplement. The patient is doing much better. He is stable to be discharged. PHYSICAL EXAMINATION: Vital Signs: This morning noted. Neck: Supple. No JVD. Lungs: Bibasilar crepitations. Occasional wheezing. CVS: S1 and S2. Bradycardia. Abdomen: Soft, nontender. Bowel sounds present. ROCKET ENGINE TESTER: Alert, awake. Able to move all 4 limbs. DIAGNOSTIC DATA: Lab data done yesterday, potassium was 2.8. BUN was 19, creatinine 0.7, sodium 140. Albumin was 2.5, protein 5.1. Urinalysis on admission did reveal 10-20 WBC. Urine drug screen was positive for oxycodone, benzodiazepine and marijuana. Urine culture was no growth. MRI, bone scan and CT scan results reviewed. DISPOSITION/PLAN: Overall, patient received maximum benefit of hospitalization. Family wants to have home health and will recommend. Home health will check the blood work. I am going to discharge him on oral antibiotics, tapering dose of steroid. We will continue bronchodilator treatment, home oxygen. Advised him not to smoke. Follow up with me in a week. Continue follow up with his oncologist in [facility]. Advised patient to cut back pain medications. In case of more distress, call us back or go to emergency room. Overall discharge condition satisfactory. cc: Antonio Diaz MD
[2017-03-18 07:56] VITALS: BP 148/77
[2017-03-18] MEDS: ZITHROMAX PO SCH (08:39)
[2017-03-18] MEDS: PREDNISONE PO SCH (08:39)
[2017-03-18] MEDS: MARINOL PO SCH (08:40)
[2017-03-18] MEDS ORDERED: SODIUM CHLORIDE 0.9% 10 ML ONE (08:54)
[2017-03-18] MEDS: ADVAIR 250/50 DISKUS INH SCH (09:07)
[2017-03-18] MEDS: DUONEB (A & A) INH PRN (09:07)
== END 2017-03-18 09:37 | disposition home health service (06) ==
LOC: ED 23:44 → MERGE 03-13 03:37 → SUATTDRO 03-13 03:37 → ICU 03-13 03:37 → 3N 03-14 11:31
PROVIDERS: ADMIT Internal Medicine; ATTEND Internal Medicine

== ENCOUNTER 2018-12-21 07:07 | Inpatient (IN) ==
[2018-12-21] MEDS ORDERED: SODIUM CHLORIDE 0.9% 10 ML ONE (07:41)
[2018-12-21 08:40] LABS: INR 0.97; PROTIME 13.6 Seconds (11.0-16.0)
[2018-12-21 08:41] LABS: PTT 31.2 Seconds (22.3-41.8)
--- NOTE | 2018-12-21 10:24 | Diag Imaging Result Doc PS360 ---
EXAM: CHEST-2 VIEWS 12/21/2018 HISTORY: POST LEFT LUNG BIOPSY TECHNIQUE: Inspiratory expiratory chest COMMENT: There is a small left apical pneumothorax measuring 10 mm on the inspiratory image. There is a small area of pulmonary hemorrhage surrounding the nodule which was biopsied in the left upper lobe. This is not an unusual finding following biopsy. IMPRESSION: Small left apical pneumothorax. The patient is to have a follow-up chest radiograph series at around 1200. Electronically signed by Guillermo Squires 12/21/2018 10:21 AM
--- NOTE | 2018-12-21 10:57 | Diag Imaging Result Doc PS360 ---
EXAM: CT GUIDED BIOPSY LUNG 12/21/2018 HISTORY: LEFT upper LUNG NODULE TECHNIQUE: CT-guided biopsy of the left upper lobe COMMENT: The risks and benefits of the procedure, including the possibility of bleeding, infection, or reaction to lidocaine, and pneumothorax was discussed with the patient and he agreed to the procedure. Following sterile preparation of the skin anterolaterally over the left chest and administration 1% lidocaine to the skin and deeper soft tissues, a 20-gauge coaxial Temno core biopsy needle was employed to obtain four cores from the nodule which has been previously described in the left upper lobe. Some of the samples contain grossly visible anthracotic pigment. There are no immediate complications. IMPRESSION: Successful CT-guided biopsy of the left upper lobe nodule. Electronically signed by Guillermo Squires 12/21/2018 10:55 AM
--- NOTE | 2018-12-21 12:37 | Diag Imaging Result Doc PS360 ---
EXAM: CHEST-2 VIEWS 12/21/2018 HISTORY: post lung bx TECHNIQUE: Inspiratory expiratory chest COMMENT: There is a pneumothorax on the left which has increased in size since 957 from 10 mm at the apex to over 18 mm. This constitutes at least a doubling in volume. Dr. Abdi Berry has been consulted to place a chest tube. IMPRESSION: Increasing left pneumothorax. Electronically signed by Guillermo Squires 12/21/2018 12:35 PM
--- NOTE | 2018-12-21 13:36 | Diag Imaging Result Doc PS360 ---
EXAM: CHEST-PORTABLE 12/21/2018 HISTORY: post chest tube insertion TECHNIQUE: Portable upright chest at 1319 COMMENT: There is a small caliber chest tube on the left. The volume of pneumothorax on the left has diminished considerably since the previous study at 1204 with only a tiny apical pneumothorax remaining, measuring less than 6 mm in thickness. IMPRESSION: Improved left pneumothorax. Electronically signed by Guillermo Squires 12/21/2018 1:34 PM
[2018-12-21 15:11] LABS: BASO# 0.01 X1000 (0.0-0.2); BASO% 0.2 % (0.0-0.8); EOS# 0.17 X1000 (0.0-0.7); EOS% 3.2 % (0.0-10.0); HEMATOCRIT 41.1 % (42.0-52.0); HEMOGLOBIN 12.5 g/dL (14.0-18.0); LYMPH# 1.09 X1000 (1.2-3.4); LYMPH% 20.6 % (20.5-51.1); MCH 30.7 PG (27-31); MCHC 30.4 g/dL (33-37); MONO# 0.49 X1000 (0.11-0.59); MONO% 9.2 % (1.7-9.3); MPV 9.5 FL (7.4-10.4); NEUT# 3.54 X1000 (1.4-6.5); NEUT% 66.8 % (42.2-75.2); PLT 129 X1000 (130-400); RBC 4.07 XMIL (4.7-6.1); RDW 14.5 % (11.5-14.5)
--- NOTE | 2018-12-21 15:22 | OPERATIVE NOTE ---
PROCEDURE DATE: 12/21/2018 PREOPERATIVE DIAGNOSIS: Iatrogenic left pneumothorax. POSTOPERATIVE DIAGNOSIS: Iatrogenic left pneumothorax. PRINCIPAL PROCEDURE: Left chest tube. SURGEON: Mariaa Berry MD. ANESTHESIA: Local. ESTIMATED BLOOD LOSS: Less than 10 mL. DRAINS: A small pneumothorax catheter, chest tube, left chest. INDICATIONS: Henrique Nunes is a 58-year-old white male with COPD. He underwent a needle biopsy today per Radiology, Dr. Squires, and developed a pneumothorax. Repeat chest x-ray showed that this pneumothorax was getting larger and we were asked to assess him for left chest tube placement. DESCRIPTION OF PROCEDURE: The patient was in outpatient surgery. He was placed in the sitting position in the stretcher and his left chest was prepped and draped within a sterile field. We used local anesthetic at our incision site. We made a small incision at the level of the inframammary fold, anterior axillary line, left chest with an 11 blade scalpel and then I introduced a pneumothorax catheter through this skin incision and directed it to above a rib, entered the left chest, and directed the catheter superiorly and anteriorly. I removed the needle as the catheter entered the left chest. I secured the catheter to the skin with a 2-0 silk stitch. I then [facility] the [facility] suction. We did a postprocedure chest x- ray which showed that the left pneumothorax resolved and there was good position of our pneumothorax catheter. Dressings were applied. He will be admitted because of his left chest tube. There did not appear to be an ongoing air leak. cc: MD Antonio Spaulding MD
[2018-12-21 15:29] LABS: AGAP 5; ALB/GLOB RATIO 1.3; ALBUMIN 3.4 g/dL (3.5-5.0); ALKALINE PHOSPHATASE 72 U/L (32-122); BUN 9 mg/dL (8-22); CALCIUM 8.6 mg/dL (8.8-10.2); CHLORIDE 96 mmol/L (98-107); COSMO 278; CREATININE 0.7 mg/dL (0.7-1.2); ESTIMATED GFR > 60; GLUCOSE 98 mg/dL (70-104); GOT 12 U/L (10-34); GPT < 5 U/L (10-44); MAGNESIUM 1.8 mg/dL (1.5-2.7); POTASSIUM 4.4 mmol/L (3.5-5.1); SODIUM 140 mmol/L (136-145); TCO2 39 mmol/L (25-35); TOTAL BILIRUBIN 0.35 mg/dL (0.20-1.00)
[2018-12-21] MEDS ORDERED: DUONEB (A & A) INH SCH (15:30)
[2018-12-21] MEDS: PROTONIX IV SCH (15:54)
[2018-12-21] MEDS: NS 1,000 ML IV SCH (15:55)
[2018-12-21] MEDS: SODIUM CHLORIDE 0.9% INJ SCH (15:55)
[2018-12-21] MEDS: CARAFATE LIQUID PO SCH (17:31)
[2018-12-21] MEDS: NICODERM PATCH TD SCH (17:32)
[2018-12-21] MEDS: LOVENOX SUBQ SCH (17:32)
[2018-12-21] MEDS: OXY IR PO PRN ×2 (17:32→22:00)
--- NOTE | 2018-12-21 19:56 | HISTORY AND PHYSICAL ---
CHIEF COMPLAINT: Pneumothorax. HISTORY OF PRESENT ILLNESS: This 58-year-old gentleman came for lung biopsy. Patient developed pneumothorax. Initially, it was 10%. Repeat x-ray did reveal it was increasing to 18%. Biopsy was done by the radiologist. Surgical consult obtained. The patient had a chest tube placed on the left side of the thorax. The patient tolerated the procedure well. The patient was admitted for further care. The patient does have advanced COPD, on home oxygen, known case of lung cancer. Initially, it was on the right side. The patient was treated. He was doing better. Recently seen by his oncologist. Repeat CT did reveal a lesion in his left lung for which the radiologist was trying to do a biopsy, where he developed pneumothorax. Patient did have some hemoptysis. No high-grade fever or chills. The patient is very vague and a poor historian. Unquantified weight loss. Oral intake was poor. Occasional dysphagia, vague abdominal pain. No diarrhea, blood, or mucus in the stool. The patient does have peripheral vascular disease. Chronic pain, being followed up by pain specialist, on high dose of pain medicine. The patient is also on high dose of Xanax which is being prescribed by a psychiatrist. No heat or cold intolerance. At times, feels depressed due to his underlying medical condition. ALLERGIES: Fentanyl and morphine. PAST MEDICAL HISTORY: 1. COPD. 2. Peripheral vascular disease. 3. Gastritis. 4. Chronic pain. 5. Anxiety. 6. History of lung cancer. 7. Situational depression. 8. Post-polio syndrome. PERSONAL HISTORY: ; lives with the . Still smokes 1 to 2 packs per day. Denied alcohol or substance abuse. Minimal assistance in activities of daily living. FAMILY HISTORY: Mother had breast cancer, at age 42. Father with myocardial infarction, also had TB. HOME MEDICATIONS: Includes: 1. Oxycodone. 2. Xanax. 3. Bronchodilator treatment. REVIEW OF SYSTEMS: As per HPI. The patient does have deformity of the feet, history suggestive of intermittent claudication. PHYSICAL EXAMINATION: GENERAL: Middle-aged white gentleman who does look old for his age. VITAL SIGNS: Blood pressure 105/72, pulse 72, respirations 18, temperature normal. SKIN: Normal skin, normal turgor. No rash or petechiae. HEAD: Atraumatic, normocephalic. EYES: [place] conjunctivae. Anicteric sclerae. Extraocular muscle movement normal. Fundus cannot be penetrated. ENT: Good oral hygiene. No tonsillopharyngeal congestion or exudate. Ears and nose benign. NECK: Supple. No JVD, thyromegaly, or lymphadenopathy. CHEST: The patient has a chest tube on the left side. Bilateral air entry present. No rales. Decreased air entry, left base. CARDIOVASCULAR: S1 and S2 heard. No gallop or thrill. ABDOMEN: Soft. No distention. Bowel sounds present. Mild epigastric tenderness. No guarding or rigidity. EXTREMITIES: No cyanosis, clubbing. Patient does have evidence of chronic vascular insufficiency, both feet. Minimal swelling of both feet. Evidence of post-polio syndrome. MORTGAGE OR LOAN UNDERWRITER: Alert, awake, able to move all 4 limbs. LABORATORY DATA: Done today: Hemoglobin 12.5, hematocrit 41, WBC count 5.3, platelet count 129,000. PT/INR 0.97, PTT 31.2. Electrolyte results reviewed. Magnesium 1.8. Chest x-ray noted. ASSESSMENT: Patient's problems include: 1. Iatrogenic pneumothorax. 2. Lung cancer. Biopsy result is pending. 3. Advanced chronic obstructive pulmonary disease. 4. Failure to thrive. 5. Gastritis and reflux disease. 6. Post-polio syndrome. PLAN: 1. Admit the patient. 2. Resume home medicine. 3. Patient already had chest tube. 4. Continue rest of the treatment. 5. Close observation. 6. Overall plan discussed with the patient and . They are in agreement. cc: Antonio Diaz MD
[2018-12-21] MEDS: PERIDEX MT SCH (21:17)
[2018-12-21] MEDS: XANAX PO PRN (22:01)
[2018-12-22] MEDS: OXY IR PO PRN ×4 (03:08→22:12)
[2018-12-22] MEDS: XANAX PO PRN ×3 (03:08→22:12)
[2018-12-22] MEDS: CARAFATE LIQUID PO SCH ×5 (06:00→22:12)
[2018-12-22 07:05] LABS: BASO# 0.01 X1000 (0.0-0.2); BASO% 0.2 % (0.0-0.8); EOS# 0.11 X1000 (0.0-0.7); EOS% 2.2 % (0.0-10.0); HEMATOCRIT 40.4 % (42.0-52.0); HEMOGLOBIN 12.4 g/dL (14.0-18.0); LYMPH# 0.99 X1000 (1.2-3.4); LYMPH% 19.6 % (20.5-51.1); MCH 30.3 PG (27-31); MCHC 30.7 g/dL (33-37); MCV 98.8 FL (81-99); MONO# 0.39 X1000 (0.11-0.59); MONO% 7.7 % (1.7-9.3); MPV 9.9 FL (7.4-10.4); NEUT# 3.54 X1000 (1.4-6.5); NEUT% 70.3 % (42.2-75.2); PLT 128 X1000 (130-400); RBC 4.09 XMIL (4.7-6.1); RDW 14.3 % (11.5-14.5); WBC 5.04 X1000 (4.8-10.8)
--- NOTE | 2018-12-22 07:07 | PROGRESS NOTE ---
DATE: 12/22/2018 SUBJECTIVE: Mr. Nunes is doing better. He does have some soreness in the left chest wall. No high-grade fever or chills. No nausea or vomiting. No hemoptysis. Oral intake is fair. The patient came for CT-guided needle biopsy of the lung lesion. Patient had pneumothorax. OBJECTIVE: Vital signs: As noted. Neck: Supple. No JVD. Lungs: Bilateral air entry present. Some inspiratory crepitation in the left lower lung field. CVS: S1 and S2 heard. Abdomen: Soft and nontender. Bowel sounds present. Extremities: No cyanosis or clubbing. Patient does have post-polio syndrome. DIESEL BUS MECHANIC: Alert, awake and answering questions fairly well. The patient does have chest tube left thorax. LABORATORY: Blood work done. The results are pending. I am going to get chest x-ray. Continue rest of the treatment. CONSIDERATION: Post procedural pneumothorax. Lung cancer. COPD. Gastritis. Post-polio syndrome. Surgeon following patient with us. Continue pain medicine and close observation. cc: Antonio Diaz MD
--- NOTE | 2018-12-22 07:22 | Diag Imaging Result Doc PS360 ---
EXAM: CHEST-PORTABLE INDICATION: Pneumothorax TECHNIQUE: One view COMPARISON: 12/21/2018 FINDINGS: Right chest port is in stable position. The left chest tube is stable. The trace left apical pneumothorax has further decreased in size. It measures only about 4.5 mm in thickness. No new consolidation is identified. Cardiac silhouette is stable. IMPRESSION: Continued improvement of the tiny left apical pneumothorax. Electronically signed by Wayne Montenegro 12/22/2018 7:20 AM
[2018-12-22 07:46] LABS: AGAP 6; ALB/GLOB RATIO 1.3; ALBUMIN 3.1 g/dL (3.5-5.0); ALKALINE PHOSPHATASE 69 U/L (32-122); BUN 10 mg/dL (8-22); CALCIUM 8.3 mg/dL (8.8-10.2); CHLORIDE 100 mmol/L (98-107); COSMO 278; CREATININE 0.6 mg/dL (0.7-1.2); ESTIMATED GFR > 60; GLUCOSE 86 mg/dL (70-104); GOT 11 U/L (10-34); GPT < 5 U/L (10-44); POTASSIUM 4.1 mmol/L (3.5-5.1); SODIUM 140 mmol/L (136-145); TCO2 34 mmol/L (25-35); TOTAL BILIRUBIN 0.57 mg/dL (0.20-1.00); TOTAL PROTEIN 5.5 g/dL (6.3-8.3)
[2018-12-22] MEDS: XOPENEX NEB INH PRN ×3 (07:57→19:45)
--- NOTE | 2018-12-22 07:57 | PROGRESS NOTE ---
DATE: 12/22/2018 Mr. Nunes is a 58-year-old white male who underwent a left lung biopsy yesterday per Radiology with an iatrogenic left pneumothorax. He has significant COPD. We treated his pneumothorax with a pneumothorax catheter left side. It has been to suction. He appears to have a persistent air leak when he coughs this morning. I will try to remove his suction off is pneumothorax catheter and see if his lung stays inflated. Will leave the left pneumothorax catheter for now. cc: MD Antonio Spaulding MD
[2018-12-22] MEDS: PREDNISONE PO SCH (09:27)
[2018-12-22] MEDS: NICODERM PATCH TD SCH (09:27)
[2018-12-22] MEDS: NS 1,000 ML IV SCH (09:30)
[2018-12-22] MEDS: PERIDEX MT SCH ×2 (10:55→22:12)
--- NOTE | 2018-12-22 11:01 | EKG Report ---
Test Performed on : 12/22/2018 10:54:06 AM Test Reason : rhythm change Blood Pressure : / mmHG Vent. Rate : 126 BPM Atrial Rate : 416 BPM P-R Int : 000 ms QRS Dur : 050 ms QT Int : 266 ms P-R-T Axes : 000 082 065 degrees QTc Int : 385 ms Atrial fibrillation. with rapid ventricular response. Nonspecific ST and T wave abnormality Abnormal ECG When compared with ECG of 06-SEP-2016 14:31, Atrial fibrillation. has replaced Sinus rhythm. QRS duration has decreased ST now depressed in Anterior leads Nonspecific T wave abnormality no longer evident in Inferior leads Confirmed by Joseph TOURE, Tab Constantino ([id number]) on 12/24/2018 10:52:45 AM
[2018-12-22] MEDS ORDERED: LANOXIN IV ONE (12:40)
--- NOTE | 2018-12-22 14:13 | Diag Imaging Result Doc PS360 ---
EXAM: CHEST-PORTABLE 12/22/2018 HISTORY: L chest tube. TECHNIQUE: AP portable at 1346 COMMENT: There is a small residual apical pneumothorax on the left measuring less than 9 mm at the apex. This is slightly larger than it was at the time the previous study of this date at 0641. There is still some soft tissue emphysema laterally on the left. IMPRESSION: Slightly increased left pneumothorax. Electronically signed by Guillermo Squires 12/22/2018 2:11 PM
--- NOTE | 2018-12-22 14:15 | CARDIOLOGY CONSULTATION ---
DATE: 12/22/2018 CHIEF COMPLAINT: On presentation was presenting for biopsy of a left lung nodule. He subsequently was admitted for pneumothorax following the procedure. HISTORY OF PRESENT ILLNESS: Mr. Nunes is a 58-year-old gentleman with a history of previous right- sided lung cancer a couple of years ago. He subsequently has had a biopsy which reportedly showed a left-sided lung cancer. He had a biopsy yesterday which resulted in pneumothorax. He subsequently had a left-sided chest tube placed. The patient had onset of atrial fibrillation occurring during this hospitalization. This was asymptomatic. He subsequently has converted back into sinus. His initial EKG was at 10:54 this a.m. Periods heart rate on that study was 126 beats per minute. He denies any orthopnea. He does have a history of coronary disease with moderate disease in the circ as well as a right coronary by cath in 2009. He has a history of severe COPD on home oxygen therapy and is quite cachectic. PAST MEDICAL HISTORY: 1. Severe COPD, on home oxygen therapy. 2. History of peripheral vascular disease with carotid stenosis. 3. Gastritis. 4. History of right-sided lung cancer and presumably with a left-sided lung cancer recently diagnosed by biopsy. 5. Post polio syndrome. 6. Hypertension. SOCIAL HISTORY: He is . His is present in the room. He smokes 1 to 2 packs per day. FAMILY HISTORY: Mother had breast cancer, at 42. Father had an IN as well as tuberculosis. REVIEW OF SYSTEMS: A 10 system review of systems is negative except for those as mentioned in HPI. PHYSICAL EXAMINATION: Patient is afebrile. His heart rate most recently was in the 80s to 90s during my examination. His blood pressure is 89/60. Most systolics have been in the 90s to 110s.Generally: He is an ill-appearing cachectic white male in no acute distress lying in bed. HEENT: Oropharynx moist. Poor dentition. Eye examination is pink conjunctivae. White sclerae. Neck: Examination shows no obvious thyromegaly or thyroid tenderness. Cardiovascular: He sounds to be in a regular rate and rhythm. His current telemetry demonstrates sinus rhythm. He has no murmurs. He has no lower extremity edema. No S3. Chest: His chest exam has reduced breath sounds throughout all lung sanchez. He has no expiratory wheezing. Left- sided chest tube is in place. Abdomen: Soft, nontender, nondistended. He has no obvious organomegaly. Skin: Warm and dry throughout without any rashes. Neurologic: He is moving all extremities well. He has no lateralizing deficits. Psychiatric: He is alert, oriented, pleasant. Normal mood and affect. PERTINENT DATA: His EKG this morning at 10:54 shows atrial fibrillation. Rapid ventricular response, rate of 126 beats per minute. Somewhat poor baseline on that study. He had a chest x-ray this morning demonstrating improvement in a tiny apical left pneumothorax. He had laboratory data demonstrating a white count of 5, hematocrit 40, platelet count of 128,000. His sodium was 140, potassium 4.1, his BUN is 10, creatinine 0.6. His albumin level was 3.1. ASSESSMENT: Mr. Jerez is 58-year-old gentleman who presented for biopsy. He subsequently had a pneumothorax. He has developed atrial fibrillation during this hospitalization. PLAN: At this point. We will check an echocardiogram as well as a TSH. He has a history of coronary disease as well as severe lung disease. I would likely try to initiate him on sotalol. Will try a dose of 80 mg b.i.d. and see if we can try to keep him out of atrial fibrillation. He does not have a whole lot of blood pressure to work with at this point. We will consider long- term anticoagulation in the near future. cc: MD Antonio Denis MD MTDD
[2018-12-22] MEDS: SODIUM CHLORIDE 0.9% INJ SCH (15:27)
[2018-12-22] MEDS: PROTONIX IV SCH (15:27)
[2018-12-22] MEDS ORDERED: NS 250 ML IV ONE (17:03)
[2018-12-22] MEDS: LOVENOX SUBQ SCH (17:22)
--- NOTE | 2018-12-22 21:44 | ECHO REPORT ---
ORDER DATE: 12/22/2018 MEASUREMENTS: Aortic root 3.3, left atrium 2.3. SUMMARY: 1. Technically difficult study due to limited acoustic window quality. There were no true apical windows available. 2. The aortic valve was without evidence of structural abnormality and opens adequately on 2- dimensional images. Peak gradient across the aortic valve is less than 5 mmHg. Mitral, tricuspid and pulmonic valves are without evidence of structural abnormality. There is trace tricuspid regurgitation. Aortic root is normal in size. 3. Normal left ventricular dimensions suggested. Estimated left ejection fraction appears to be at least 60%. No regional wall abnormalities are evident. Left atrium is normal size. Right atrium is normal size. The right ventricle appears mildly enlarged. 4. No pericardial effusion. 5. Appearance of inferior vena cava suggests normal central venous pressure. CONCLUSIONS: 1. Technically difficult study. 2. No significant valvular abnormality evident. 3. Estimated left ejection fraction at least 60%. 4. Mild right ventricular enlargement. cc: MD Kevyn Wilson MD Bharat K. Vakharia, MD
[2018-12-22] MEDS: BETAPACE PO SCH (22:12)
[2018-12-23] MEDS: OXY IR PO PRN ×5 (02:17→23:34)
[2018-12-23] MEDS: XANAX PO PRN ×2 (02:17→23:37)
[2018-12-23] MEDS: NS 1,000 ML IV SCH ×2 (02:52→19:27)
[2018-12-23] MEDS: CARAFATE LIQUID PO SCH ×4 (05:53→23:29)
--- NOTE | 2018-12-23 06:46 | PROGRESS NOTE ---
DATE: 12/23/2018 SUBJECTIVE: Mr. Nunes is doing better. Yesterday, the patient had paroxysmal atrial fibrillation with rapid ventricular response. He converted back to sinus rhythm. The patient is doing better. The patient has chest soreness. His blood pressure was low, but it improved. Cardiology was consulted and a recommendation was noted. The patient had pneumothorax. Surgeon following it. OBJECTIVE: Vital Signs: His vital signs are as noted. Neck: Supple. No JVD. Lungs: Decreased air entry left base. CVS: S1 and S2 heard. Regular. Abdomen: Soft and nontender. Bowel sounds present. Extremities: No cyanosis or clubbing. No acute DVT. FIELD REPORTER: Alert and awake. Able to move all 4 limbs. PROBLEMS: 1. The patient's problems includes lung nodule status post biopsy complicated by pneumothorax. Patient has chest tube. Once Dr. Berry removed the chest tube, we will plan discharge. 2. Paroxysmal atrial fibrillation. 3. Chronic obstructive pulmonary disease. 4. Gastritis and reflux disease. 5. Post-polio syndrome. 6. Labs done yesterday noted. 7. We will continue current treatment and close observation. PLAN: Overall plan discussed with the patient, and he is in agreement. cc: Antonio Diaz MD
[2018-12-23] MEDS: XOPENEX NEB INH PRN ×3 (07:56→19:45)
--- NOTE | 2018-12-23 09:23 | EKG Report ---
Test Performed on : 12/23/2018 09:13:15 AM Test Reason : afib Blood Pressure : / mmHG Vent. Rate : 078 BPM Atrial Rate : 078 BPM P-R Int : 178 ms QRS Dur : 078 ms QT Int : 370 ms P-R-T Axes : 081 091 074 degrees QTc Int : 421 ms Normal sinus rhythm. Right atrial enlargement Rightward axis Pulmonary disease pattern Abnormal ECG When compared with ECG of 22-DEC-2018 10:54, (Unconfirmed) Significant changes have occurred Confirmed by Joseph TOURE, Tab Constantino ([id number]) on 12/24/2018 10:54:21 AM
[2018-12-23] MEDS: BETAPACE PO SCH ×2 (10:40→22:47)
[2018-12-23] MEDS: PREDNISONE PO SCH (10:41)
[2018-12-23] MEDS: NICODERM PATCH TD SCH (10:41)
[2018-12-23] MEDS: PERIDEX MT SCH ×2 (10:47→20:21)
--- NOTE | 2018-12-23 11:28 | Diag Imaging Result Doc PS360 ---
EXAM: CHEST-PORTABLE HISTORY: L chest tube TECHNIQUE: Single view of the chest was performed portably. COMPARISON: 12/22/2018 FINDINGS: Tiny left apical pneumothorax is again identified, slightly decreased from yesterday. Smallbore chest tube is in place. Subcutaneous emphysema is again identified. Interstitial fibrosis appears stable. There is a right central venous catheter tip in appropriate position. The cardiomediastinal silhouette is within normal limits. No focal consolidation. Screw plate fixation cervical spine. IMPRESSION: Tiny left apical pneumothorax slightly decreased from prior. Electronically signed by Mayelin Granda 12/23/2018 11:25 AM
[2018-12-23] MEDS: PROTONIX IV SCH (15:16)
[2018-12-23] MEDS: SODIUM CHLORIDE 0.9% INJ SCH (15:16)
[2018-12-23] MEDS: LOVENOX SUBQ SCH (17:13)
--- NOTE | 2018-12-23 19:36 | CARDIOLOGY PROGRESS NOTE ---
DATE: 12/23/2018 SUBJECTIVE: Mr. Nunes reports he feels well today. He has no complaints. His breathing has improved. He has no palpitations. PHYSICAL EXAMINATION: Vital Signs: The patient had a temperature of 99.4 degrees, heart rate 82, blood pressure 97/69. General: He is in no acute distress. Cardiovascular: He sounds to be in a regular rate and rhythm. He has no murmurs today. He has no S3. Lungs: Reduced breath sounds, somewhat diffusely. Left chest tube is in place. He has no wheezing and no increased work of breathing. Abdomen: Soft and nontender. PERTINENT DATA: His TSH today was 1.1. He had an electrocardiogram that demonstrated sinus rhythm, QTc interval of 421. His echocardiogram yesterday demonstrated a normal ejection fraction. He had no significant valvular abnormalities. This was a difficult study. ASSESSMENT: Mr. Nunes is a 58-year-old gentleman with lung cancer who had a lung biopsy performed, resulting in pneumothorax. He also had development of atrial fibrillation which has since converted into sinus rhythm. At this point, his QTc interval is normal with initiation of sotalol. I would recommend holding him overnight and if his morning EKG after the dose of sotalol is okay, then he can likely be discharged home. I would not initiate him on anticoagulation given his lack of risk factors. He is a CHADS-VASc of 0. We could initiate aspirin in the future. cc: MD Antonio Denis MD
[2018-12-24] MEDS: OXY IR PO PRN ×4 (03:33→21:08)
[2018-12-24] MEDS: NS 1,000 ML IV SCH (04:40)
[2018-12-24] MEDS: CARAFATE LIQUID PO SCH ×4 (04:42→22:00)
[2018-12-24] MEDS ORDERED: ROCEPHIN 1 GM in NS 50 ML IV ONE (06:09)
--- NOTE | 2018-12-24 07:17 | EKG Report ---
Test Performed on : 12/23/2018 10:26:19 PM Test Reason : afib Blood Pressure : / mmHG Vent. Rate : 056 BPM Atrial Rate : 056 BPM P-R Int : 178 ms QRS Dur : 072 ms QT Int : 418 ms P-R-T Axes : 080 086 077 degrees QTc Int : 403 ms Sinus bradycardia. Otherwise normal ECG When compared with ECG of 23-DEC-2018 09:13, (Unconfirmed) No significant change was found Confirmed by Joseph TOURE, Tab Constantino ([id number]) on 12/24/2018 10:57:24 AM
--- NOTE | 2018-12-24 07:34 | Diag Imaging Result Doc PS360 ---
EXAM: CHEST-PORTABLE INDICATION: L chest tube. TECHNIQUE: One view COMPARISON: 12/23/2018 FINDINGS: The small bore left chest tube is not clearly identified and may have been removed. It is possible that it is being obscured by the nasal cannula tube. The right chest port is in stable position. There has been interval increase in size of the left pneumothorax. It now occupies about 20% of the left hemithorax. There is increased subcutaneous emphysema adjacent to the left chest wall. There is stable interstitial thickening bilaterally. No new consolidation is identified. Cardiac silhouette is stable. IMPRESSION: Interval increase in size of the left pneumothorax as described. Electronically signed by Wayne Montenegro 12/24/2018 7:32 AM
--- NOTE | 2018-12-24 07:39 | PROGRESS NOTE ---
DATE: 12/24/2018 SUBJECTIVE: Mr. Nunes is doing better. The surgeon removed the chest tube yesterday. No unusual shortness of breath or fever. Tolerating medication well. Patient does have chronic cough. At times, the sputum is yellowish cream color. No nausea or vomiting. Denied any diarrhea. Tolerating Betapace well. OBJECTIVE: Vital signs: As noted. Neck: Supple. No JVD. Lungs: Bilateral air entry present. CVS: S1 and S2 heard. Abdomen: Soft, nontender. Bowel sounds are present. LACQUER SPRAYER: Alert and awake. Answering questions fair. ASSESSMENT AND PLAN: 1. Patient admitted with pneumothorax. We are waiting for x-ray for this morning. Paroxysmal atrial fibrillation on Betapace. Dr. Germain's recommendation noted. Dr. Germain following patient with us. So far, patient tolerating medication well. Once okay with Cardiology, we will discharge the patient home. 2. Lung cancer status post biopsy. Will follow the results. 3. Chronic pain. 4. Gastritis. 5. Patient does have bronchitis. I am going to give him Rocephin and prescription of Augmentin. Plan is to discharge patient home today on Augmentin, tapering dose of prednisone. Continue home medicine. Betapace as per cardiology. Follow up with me in a week. Smoking cessation. In case of more distress, call us back or go to emergency room. cc: Antonio Diaz MD
[2018-12-24] MEDS: BETAPACE PO SCH ×3 (10:41→21:10)
[2018-12-24] MEDS: PERIDEX MT SCH ×2 (10:42→21:08)
[2018-12-24] MEDS: NICODERM PATCH TD SCH (10:42)
[2018-12-24] MEDS ORDERED: PRECEDEX ONE (12:51)
[2018-12-24] MEDS ORDERED: SODIUM CHLORIDE 0.9% 10 ML ONE (12:52)
[2018-12-24] MEDS ORDERED: FENTANYL ONE (12:57)
[2018-12-24] MEDS ORDERED: VERSED ONE (12:57)
[2018-12-24] MEDS ORDERED: DIPRIVAN 1% ONE (12:57)
[2018-12-24] MEDS ORDERED: XYLOCAINE 1%/EPI 1:100,000 ONE (13:19)
--- NOTE | 2018-12-24 14:27 | Diag Imaging Result Doc PS360 ---
EXAM: CHEST-PORTABLE 12/24/2018 HISTORY: post chest tube insertion TECHNIQUE: AP portable at 1413 COMMENT: There is a chest tube on the left. The pneumothorax which was previously present is now evacuated. There is considerable remaining subcutaneous and soft tissue emphysema over the left chest. Coarse interstitial opacities are seen throughout both lungs and there is increased opacity in the left lower lobe which may be due to atelectasis. Some fibrosis is present in the right middle lobe. IMPRESSION: Resolution of left pneumothorax. Electronically signed by Guillermo Squires 12/24/2018 2:24 PM
--- NOTE | 2018-12-24 14:55 | EKG Report ---
Test Performed on : 12/24/2018 2:49:01 PM Test Reason : afib, sotalol Blood Pressure : / mmHG Vent. Rate : 044 BPM Atrial Rate : 044 BPM P-R Int : 188 ms QRS Dur : 080 ms QT Int : 466 ms P-R-T Axes : 066 082 069 degrees QTc Int : 398 ms Marked sinus bradycardia. Abnormal ECG When compared with ECG of 23-DEC-2018 22:26, No significant change was found Confirmed by Joseph TOURE, Tab Constantino ([id number]) on 12/27/2018 9:27:41 AM
[2018-12-24] MEDS: PREDNISONE PO SCH (15:20)
--- NOTE | 2018-12-24 15:40 | PROGRESS NOTE ---
DATE: 12/24/2018 Mr. Henrique Nunes' chest x-ray this morning showed a recurrent 20% pneumothorax and an increase in the subcutaneous air involving his left chest. Yesterday I removed his pneumothorax catheter from his left chest. He had a comfortable evening but this morning his chest x-ray was worse and we felt we should replace his left chest tube and consider stopping his prednisone so that this air leak will stop. I discussed this with the patient and his family at the bedside. We will plan to place a left chest tube. cc: MD Antonio Spaulding MD
[2018-12-24] MEDS: XOPENEX NEB INH PRN ×2 (15:58→21:09)
[2018-12-24] MEDS: LOVENOX SUBQ SCH (16:57)
[2018-12-24] MEDS: PROTONIX IV SCH (16:57)
[2018-12-24] MEDS: SODIUM CHLORIDE 0.9% INJ SCH (16:57)
--- NOTE | 2018-12-24 17:22 | PROGRESS NOTE ---
DATE: 12/24/2018 Mr. Henrique Nunes I placed another left chest tube. It is in good position and his left recurrent pneumothorax is resolved. We will keep it at -20 cm of suction. He does not have a large air leak. Dr. Femi Rossi is covering the weekend. cc: MD Antonio Spaulding MD
--- NOTE | 2018-12-24 20:30 | OPERATIVE NOTE ---
PROCEDURE DATE: 12/24/2018 PREOPERATIVE DIAGNOSIS: Recurrent left pneumothorax. POSTOPERATIVE DIAGNOSIS: Recurrent left pneumothorax. PRINCIPLE PROCEDURES: Placement of a #24-Mauritanian left chest tube. SURGEON: Mariaa Berry MD. ANESTHESIA: Local with IV sedation. ESTIMATED BLOOD LOSS: Less than 10 mL. DRAINS: A 24 chest tube left chest. INDICATIONS: Mr. Henrique Nunes is a 58-year-old white male who has COPD. He is a patient Dr. Diaz. He underwent a CT-guided needle biopsy of a left lung lesion and suffered an iatrogenic pneumothorax. Initially I used a pneumothorax kit on the day of his procedure to resolve a left pneumothorax. I removed that catheter last night at the bedside but this morning a chest x-ray documented recurrent 20% pneumothorax and increased subcutaneous air. It was felt that we needed to replace his left chest tube and consider stopping his prednisone so that he could feel this air leak. DESCRIPTION OF PROCEDURE: The patient was brought to the operating room. He was placed in the sitting position on the operating room table. He received IV sedation and was monitored by anesthesia. His left chest was prepped and draped in a sterile field. I used local anesthetic at our incision site. At approximately the nipple level I made a small incision and then tunneled subcu to above a rib where I entered the left chest using Lomas scissors and then I placed a 24- Mauritanian chest tube anteriorly and superiorly into the left chest. It was placed in the left chest until the #10 was at the skin on the chest tube. I secured the chest tube to the skin with 0 silk stitches and it was hooked to -20 cm of suction. We used Xeroform followed by dry dressing for dressing. His O2 saturation improved with placement of the left chest tube. He will go the recovery room where we will get a postprocedure chest x-ray with plans for him to return to the floor. cc: MD Antonio Spaulding MD
[2018-12-24] MEDS: XANAX PO PRN (21:08)
[2018-12-25] MEDS: OXY IR PO PRN ×6 (01:20→21:47)
[2018-12-25] MEDS: CARAFATE LIQUID PO SCH ×5 (06:32→23:08)
--- NOTE | 2018-12-25 07:02 | Diag Imaging Result Doc PS360 ---
EXAM: CHEST-PORTABLE 12/25/2018 HISTORY: L pneumothorax TECHNIQUE: AP portable at 0602 COMMENT: The left chest tube is again noted. The pneumothorax which was present on previous studies is now completely evacuated. There continues to be extensive left-sided soft tissue emphysema. Otherwise the appearance the chest has not changed appreciably since 12/24/2018. IMPRESSION: Resolution of left pneumothorax. Continued soft tissue emphysema. Electronically signed by Guillermo Squires 12/25/2018 7:00 AM
[2018-12-25] MEDS: XOPENEX NEB INH PRN ×4 (07:59→20:30)
[2018-12-25] MEDS: PERIDEX MT SCH ×2 (09:01→21:45)
[2018-12-25] MEDS: BETAPACE PO SCH ×2 (09:02→21:46)
[2018-12-25] MEDS: NICODERM PATCH TD SCH (09:02)
[2018-12-25] MEDS: XANAX PO PRN ×2 (17:27→23:12)
[2018-12-25] MEDS: SODIUM CHLORIDE 0.9% INJ SCH (17:29)
[2018-12-25] MEDS: PROTONIX IV SCH (17:29)
[2018-12-25] MEDS: LOVENOX SUBQ SCH (17:30)
--- NOTE | 2018-12-25 21:11 | PROGRESS NOTE ---
DATE: 12/25/2018 Vital signs stable with temperature 97.4 degrees, heart rate 58, respirations 20, blood pressure 153/84, O2 saturation on nasal oxygen 90%. His chest tube was reinserted by Dr. Berry. Family was told that he would need to stay until Thursday to allow his pneumothorax to completely resolve. Chest x-ray showed resolution of left pneumothorax. There is persistent lung cancer. He continues to have left chest pain only partially relieved by pain medicine. Pain medicine will be adjusted. cc: MD Antonio Reese MD
[2018-12-26] MEDS: OXY IR PO PRN ×3 (01:56→09:03)
[2018-12-26] MEDS: CARAFATE LIQUID PO SCH ×4 (05:04→22:15)
--- NOTE | 2018-12-26 05:23 | GENERAL SURGERY PROGRESS NOTE ---
DATE: 12/25/2018 SUBJECTIVE: Doing okay. No chest pain. No shortness of breath. Chest tubes in place, there is no obvious air leak. OBJECTIVE: He does have some subcu air in the left chest. Chest x-ray shows good expansion of the lung with subcu air, but no pneumothorax. LABS: I reviewed his labs. ASSESSMENT AND PLAN: A 58-year-old gentleman with left pneumothorax after percutaneous biopsy. He does have subcu air, but this overall seems stable. No air leak noted on his chest tube. We will plan to water-seal tomorrow and may remove his tube on Thursday. cc: MD Antonio Santos MD
[2018-12-26] MEDS: XOPENEX NEB INH PRN ×3 (08:10→19:44)
--- NOTE | 2018-12-26 08:12 | CARDIOLOGY PROGRESS NOTE ---
DATE: 12/25/2018 SUBJECTIVE: Mr. Nunes has a chest tube replaced in his left chest secondary to recurrence of pneumothorax on chest tube removal. He has no complaints today. He has no palpitations. Telemetry noted that he popped back into atrial fibrillation recently. PHYSICAL EXAMINATION: Afebrile, heart rate is 63, blood pressure 109/74. General: He is in no acute distress. Cardiovascular: He is in an irregularly irregular rhythm. He has no murmurs. No lower extremity edema. His chest exam has very distant breath sounds diffusely throughout all lung sanchez. His abdomen is soft and nontender. PERTINENT DATA: He has no CBC data today. His troponin is negative. His last EKG, which was checked yesterday afternoon, demonstrated a QTc interval of 398. ASSESSMENT: Mr. Nunes is a 58-year-old gentleman with lone atrial fibrillation who presented for a lung biopsy which subsequently proved to show lung adenocarcinoma. He had a postprocedural pneumothorax with recurrence upon removal of the chest tube. He now has a chest tube back in place. PLAN: The patient will likely have recurrent bouts of atrial fibrillation while chest tube is in place. Hopefully, we can continue him on the sotalol at the current dose and he will reconvert. Long-term, he needs to be on aspirin therapy for his atrial fibrillation. He has a CHADS-VASc score of 0. His echocardiogram earlier in the hospitalization demonstrated a normal ejection fraction. cc: MD Antonio Denis MD
[2018-12-26] MEDS: PERIDEX MT SCH ×2 (09:02→20:24)
[2018-12-26] MEDS: XANAX PO PRN ×2 (09:03→20:25)
[2018-12-26] MEDS: BETAPACE PO SCH ×2 (09:03→20:24)
[2018-12-26] MEDS: NICODERM PATCH TD SCH (09:03)
[2018-12-26] MEDS ORDERED: OXY IR PO PRN (12:49)
--- NOTE | 2018-12-26 15:16 | PROGRESS NOTE ---
DATE: 12/26/2018 SUBJECTIVE: Patient complains of continued chest pain. His pain medicine has not been dosed as he was getting home. OBJECTIVE: Vital Signs: Temperature 97.8 degrees, heart rate 70, respirations 16, blood pressure 92/74. O2 saturations on nasal oxygen 93%. Lungs: Clear to auscultation. Abdomen: Soft without tenderness. PLAN: Increase oxycodone to 30 mg q.6 hours routine. Hopefully, chest tube can be removed tomorrow morning. He has had intermittent atrial fibrillation. Dr. Germain feels that his atrial fibrillation can be controlled with sotalol and probably will convert after removal of chest tube. He is currently on Lovenox 30 mg. cc: MD Antonio Reese MD
--- NOTE | 2018-12-26 16:17 | CARDIOLOGY PROGRESS NOTE ---
DATE: 12/26/2018 SUBJECTIVE: Mr. Nunes has no complaints today. He is tolerating oral intake. He has no palpitations. PHYSICAL: Afebrile. Heart rate 70, blood pressure 92/74. General: He is in no acute distress. Cardiovascular: He sounds to be in a regular rate and rhythm. He has no murmurs. He has no S3. He has no lower extremity edema. Chest: Clear bilaterally with very reduced breath sounds diffusely. He has no increased work of breathing. He has a left-sided chest tube. Abdomen: Soft, nontender. PERTINENT DATA: He has no new laboratory data. ASSESSMENT: Mr. Nunes is a 58-year-old gentleman who had a lung biopsy resulting in pneumothorax. He continues to have a chest tube in place. He has had paroxysmal atrial fibrillation. PLAN: I would recommend continuing on the sotalol at this point. He seems to be maintaining sinus rhythm. He can start aspirin at the time of discharge. He is on oxycodone he reports 30 mg q.4 hours at home. Currently he is on 15 mg p.o. q.4 hours p.r.n. I will change it to 30 t.i.d. p.r.n. to get him closer to his home dose. cc: MD Antonio Denis MD
[2018-12-26] MEDS: OXY IR PO SCH ×2 (17:00→20:23)
[2018-12-26] MEDS: SODIUM CHLORIDE 0.9% INJ SCH (17:33)
[2018-12-26] MEDS: PROTONIX IV SCH (17:33)
[2018-12-26] MEDS: LOVENOX SUBQ SCH (17:34)
--- NOTE | 2018-12-26 20:59 | GENERAL SURGERY PROGRESS NOTE ---
DATE: 12/26/2018 SUBJECTIVE: No respiratory events overnight. Remains on nasal cannula, saturating mid 90s. OBJECTIVE: Vital Signs: Pulse is in the 70s, blood pressure remained kind of marginal with systolics in the 80s to low 100s depending on whether he is awake or asleep. Chest: The chest appears stable. Voice is normal. Chest tube is in place without an air leak. IMAGING: He had a chest x-ray yesterday that showed resolution of pneumothorax, but continued emphysema. ASSESSMENT AND PLAN: Left-sided spontaneous pneumothorax. I have water sealed his tube. We will repeat x-ray in the morning and see how it looks. Otherwise, we will continue to follow along. cc: MD Antonio Santos MD
[2018-12-27] MEDS: OXY IR PO SCH ×4 (03:18→21:15)
[2018-12-27] MEDS: CARAFATE LIQUID PO SCH ×3 (06:00→18:06)
[2018-12-27 06:48] LABS: BASO# 0.01 X1000 (0.0-0.2); BASO% 0.2 % (0.0-0.8); EOS% 5.3 % (0.0-10.0); HEMATOCRIT 41.1 % (42.0-52.0); HEMOGLOBIN 12.8 g/dL (14.0-18.0); LYMPH# 1.48 X1000 (1.2-3.4); MCHC 31.1 g/dL (33-37); MCV 96.3 FL (81-99); MONO# 0.69 X1000 (0.11-0.59); MONO% 12.1 % (1.7-9.3); NEUT# 3.21 X1000 (1.4-6.5); NEUT% 56.4 % (42.2-75.2); PLT 168 X1000 (130-400); RBC 4.27 XMIL (4.7-6.1); RDW 14.2 % (11.5-14.5); WBC 5.69 X1000 (4.8-10.8)
[2018-12-27] MEDS: ROCEPHIN 1 GM in NS 50 ML IV SCH (06:51)
[2018-12-27 06:58] LABS: AGAP 5; ALB/GLOB RATIO 1.1; ALBUMIN 3.1 g/dL (3.5-5.0); ALKALINE PHOSPHATASE 62 U/L (32-122); BUN 19 mg/dL (8-22); CALCIUM 8.5 mg/dL (8.8-10.2); CHLORIDE 99 mmol/L (98-107); COSMO 285; CREATININE 0.8 mg/dL (0.7-1.2); ESTIMATED GFR > 60; GLUCOSE 100 mg/dL (70-104); GOT 11 U/L (10-34); GPT 6 U/L (10-44); MAGNESIUM 1.8 mg/dL (1.5-2.7); POTASSIUM 3.5 mmol/L (3.5-5.1); SODIUM 142 mmol/L (136-145); TCO2 38 mmol/L (25-35); TOTAL PROTEIN 5.8 g/dL (6.3-8.3)
--- NOTE | 2018-12-27 07:05 | PROGRESS NOTE ---
DATE: 12/27/2018 SUBJECTIVE: Mr. Nunes is doing fair. The patient's discharge was canceled because of pneumothorax on the repeat x-ray. Surgeon put another chest tube and we are following the patient. The patient does have cough with expectoration. No high-grade fever or chills. No nausea or vomiting. PHYSICAL EXAMINATION: Vital Signs: Noted. Neck: Supple. No JVD. Decreased air entry at left base. CVS: S1 and S2 heard. Abdomen: Soft, scaphoid. Bowel sounds present. SENIOR QUALITY METHODS SPECIALIST: Alert, awake. Able to move all 4 limbs. CONSIDERATION: The patient's problems include: 1. Left pneumothorax. Patient had chest tube. Surgeon is following patient with us. 2. Chronic pain. 3. Gastritis and reflux disease. 4. Paroxysmal atrial fibrillation. PLAN: Surgeon is following patient with us. Continue the rest of the treatment. Close observation. I am going to check appropriate labs. Overall plan discussed with the patient and he is in agreement. cc: Antonio Diaz MD
--- NOTE | 2018-12-27 07:18 | EKG Report ---
Test Performed on : 12/24/2018 8:40:55 PM Test Reason : afib Blood Pressure : / mmHG Vent. Rate : 054 BPM Atrial Rate : 054 BPM P-R Int : 176 ms QRS Dur : 070 ms QT Int : 418 ms P-R-T Axes : 064 081 063 degrees QTc Int : 396 ms Sinus bradycardia. Otherwise normal ECG When compared with ECG of 24-DEC-2018 14:49, (Unconfirmed) No significant change was found Confirmed by Joseph TOURE, Tab Constantino ([id number]) on 12/27/2018 9:27:54 AM
[2018-12-27] MEDS: XOPENEX NEB INH PRN ×3 (07:44→19:21)
[2018-12-27] MEDS: PERIDEX MT SCH ×2 (09:23→21:14)
[2018-12-27] MEDS: BETAPACE PO SCH ×2 (09:24→21:15)
[2018-12-27] MEDS: NICODERM PATCH TD SCH (09:24)
[2018-12-27] MEDS: XANAX PO PRN ×2 (10:55→18:06)
--- NOTE | 2018-12-27 14:00 | GENERAL SURGERY PROGRESS NOTE ---
DATE: 12/27/2018 SUBJECTIVE: Patient seems to be doing well. No major issues. He seems to be breathing okay and does not have any shortness of breath. OBJECTIVE: Vital Signs: Patient is currently afebrile. His vital signs stable. General: No acute distress. HEENT: Normocephalic, atraumatic. Pupils equal, round, reactive to light. Mucous membranes moist. Oropharynx benign. Neck: Supple, trachea midline. Cardiovascular: Regular rate and rhythm. Lungs: Breath sounds noted bilaterally. There is some subcutaneous crepitus noted left chest. Abdomen: Soft, nontender, nondistended. Extremities: Moves all extremities. Neurologic: Grossly intact. Skin: No signs of jaundice. Vascular: All extremities perfused. IMAGING: None this morning as of yet. ASSESSMENT/PLAN: 58-year-old male with left-sided pneumothorax status post CT- guided biopsy. Left-sided pneumothorax. At this time he still has crepitus in the skin and subcutaneous emphysema. I would like to watch the chest tube for another day, get a chest x- ray in the morning. If no pneumothorax will remove it at the bedside. cc: MD Antonio Beltrán MD MTDD
[2018-12-27] MEDS: PROTONIX IV SCH (14:28)
[2018-12-27] MEDS: SODIUM CHLORIDE 0.9% INJ SCH (14:28)
[2018-12-27] MEDS: LOVENOX SUBQ SCH (18:06)
[2018-12-28] MEDS: CARAFATE LIQUID PO SCH ×5 (00:21→16:20)
[2018-12-28] MEDS: OXY IR PO SCH ×3 (03:15→15:23)
[2018-12-28] MEDS: ROCEPHIN 1 GM in NS 50 ML IV SCH (06:04)
[2018-12-28] MEDS ORDERED: KLOR-CON PO ONE (06:19)
[2018-12-28] MEDS ORDERED: MILK OF MAGNESIA PO ONE (06:20)
[2018-12-28] MEDS ORDERED: DULCOLAX PR ONE (06:20)
--- NOTE | 2018-12-28 06:49 | Diag Imaging Result Doc PS360 ---
CHEST-PORTABLE - 12/28/2018 INDICATION: follow up pneumothorax COMPARISON: 12/25/2018 FINDINGS: Stable left chest tube in good position. There has been significant decrease in the soft tissue gas at the left lateral and superior chest wall. Stable right chest port. Heart size remains normal. Stable hyperexpanded lungs compatible with COPD. There has been significant improvement in the bibasilar atelectasis. IMPRESSION: No pneumothorax. Overall improvement from prior. Electronically signed by Nestor Grewal 12/28/2018 6:46 AM
--- NOTE | 2018-12-28 08:59 | PROGRESS NOTE ---
DATE: 12/28/2018 SUBJECTIVE: Mr. Nunes is doing better. The patient had a chest x-ray done today. Surgeon is going to follow the results. Lung biopsy results are pending. Revealed focal non-small cell cancer. Immuno chemical stain pending for final diagnoses. Patient did not have a bowel movement in the last few days. No dysuria or hematuria. Denied any chest pain. Oral intake is fair. OBJECTIVE: Vital signs: As noted. Neck: Supple. No JVD. Lungs: Bilateral good air entry present. Few basal crepitations CVS: S1 and S2 heard. Abdomen: Soft and scaphoid. Bowel sounds present. No acute DVT. DEFLASH AND WASH OPERATOR: Alert, awake and able to move all 4 limbs. 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 LABORATORY: Data done yesterday did reveal low normal potassium. I am going to supplement. ASSESSMENT: Patient's problems includes pneumothorax, non-small cell lung cancer, constipation, chronic pain and post-polio syndrome. PLAN: Continue current treatment. We will follow chest x-ray. After surgeon decide about chest tube, we will make necessary recommendations about discharge. I am going to treat his constipation. Overall plan discussed with the patient, and he is in agreement. cc: Antonio Diaz MD
[2018-12-28] MEDS: NICODERM PATCH TD SCH (09:07)
[2018-12-28] MEDS: PERIDEX MT SCH (09:07)
[2018-12-28] MEDS: BETAPACE PO SCH (09:07)
[2018-12-28] MEDS ORDERED: PROTONIX PO SCH (10:00)
[2018-12-28] MEDS: XOPENEX NEB INH PRN (11:16)
--- NOTE | 2018-12-28 11:20 | GENERAL SURGERY PROGRESS NOTE ---
DATE: 12/28/2018 SUBJECTIVE: Patient seems to be doing well. He still has some crepitus in his skin. OBJECTIVE: Vital Signs: Patient is currently afebrile. Vital signs stable. General: No acute distress. HEENT: Normocephalic, atraumatic. Pupils equal, round, reactive to light. Mucous membranes moist. Oropharynx benign. Neck: Supple. Trachea midline. Cardiovascular: Regular rate and rhythm. Lungs: Grossly clear. Equal breath sounds noted. Crepitus to the chest wall. Chest tube without air leak. Abdomen: Soft, nontender, nondistended. Extremities: Moves all extremities. Neurologic: Grossly intact. Skin: No signs of jaundice. Vascular: All extremities perfused. LABORATORY DATA: None. IMAGING: Pending at this point. ASSESSMENT AND PLAN: A 58-year-old gentleman with a left-sided pneumothorax. Left-sided pneumothorax. At this time, we will follow up with a.m. chest x-ray. If it looks okay, we will consider pulling the chest tube later today. Otherwise, continue current treatment. cc: MD Antonio Beltrán MD
--- NOTE | 2018-12-28 15:09 | Diag Imaging Result Doc PS360 ---
EXAM: CHEST-PORTABLE 12/28/2018 HISTORY: chest tube removal TECHNIQUE: Upright portable at 1451 COMMENT: There is still considerable soft tissue emphysema on the left. The pneumothorax which has been present previously is no longer present on the left and the chest tube has been removed. IMPRESSION: No evidence of recurrent pneumothorax. The findings were discussed with Kvng Gann MD in person at 12/28/2018 3:06 PM. Electronically signed by Guillermo Squires 12/28/2018 3:06 PM
[2018-12-28] MEDS: LOVENOX SUBQ SCH ×2 (15:23→16:20)
--- NOTE | 2018-12-28 15:37 | GENERAL SURGERY PROGRESS NOTE ---
DATE: 12/28/2018 Chest x-ray this morning showed no pneumothorax. Came to the bedside. Removed chest tube. He did have a stitch placed which we tied down, removed it in a single motion. The patient tolerated well, put an occlusive dressing on the area. We will get a chest x-ray at 3 o'clock this afternoon. If it looks okay will be okay with discharge. If it has reaccumulation of pneumothorax, will have to make a determination if new chest tube needs to be placed. cc: MD Antonio Beltrán MD
[2018-12-28 16:14] VITALS: BP 120/104
[2018-12-28] MEDS: XANAX PO PRN (16:21)
--- NOTE | 2018-12-29 14:02 | DISCHARGE SUMMARY ---
ADMISSION DATE: 12/22/2018 DISCHARGE DATE: 12/28/2018 FINAL DISCHARGE DIAGNOSIS: 1. Iatrogenic pneumothorax. 2. Lung cancer which was non-small cell. 3. Advanced chronic obstructive pulmonary disease. 4. Chronic pain. 5. Post-polio syndrome. 6. Gastritis. 7. Peripheral vascular disease. HISTORY OF PRESENT ILLNESS: Ms. Nunes a 58 -year-old white gentleman with multiple medical problems, came for CT-guided lung biopsy. Patient had lung cancer in the past. Had a CT scan done and followed by a PET scan which did reveal abnormal uptake. Patient developed pneumothorax. Initially it was 10% and then it was 20%. The patient had chest tube placed by Dr. Berry. The patient was observed, chest tube was removed but the patient had recurrence of pneumothorax and surgeon has to put the chest tube again. We treated the patient conservatively. The patient clinical condition gradually improved. Chest tube was again removed today, which is December 28. The patient is doing better. The repeat chest x-ray did not show any pneumothorax. It was okay with the surgeon to discharge the patient home. OBJECTIVE: Clinically patient is doing better. I re-evaluated the patient. His vital signs were stable. Neck: Neck is supple. No JVD. Lungs: Bilateral good air entry present. Cardiovascular: CVS S1 and S2 heard. Abdomen: Soft, nontender. Bowel sounds present. DIVORCE LAWYER: Alert, awake able to move all 4 limbs. HOSPITAL COURSE: Hospital course complicated by atrial fibrillation with rapid ventricular response. The patient had a cardiology consult done. The patient was started on Betapace which he is tolerating it well. Overall patient received maximum benefit of hospitalization and will discharge patient home today. LABORATORY DATA: Revealed hemoglobin 12.8, hematocrit 41.1. WBC count 5.69, platelet count 168,000. Electrolytes: Potassium was 3.5. Sodium 142, carbon dioxide was 38. LFT results reviewed. Magnesium 1.8. Calcium 8.5 TSH 1.14. Overall for the patient biopsy revealed focal non-small cell carcinoma of the left lung. DISPOSITION: Patient have appointment to see his oncologist. Advised patient to quit smoking. Take medicine regularly. Fall precaution. Follow up with me in a week. Follow up with oil refiner and oncologist as scheduled. In case of more distress, call us back or go to emergency room. Overall discharge condition satisfactory. cc: Antonio Diaz MD
== END 2018-12-28 18:30 | disposition home or self-care (01) | DRG 200 ==
LOC: 4N 07:07 → OPS 07:07
PROVIDERS: ADMIT Internal Medicine; ATTEND Internal Medicine
CPT/HCPCS: 32405; 71010; 71020; 71045; 71046; 77012; 80053; 82550; 83735; 84443; 84484; 85025; 85610; 85730; 86850; 86900; 86901; 88305; 93005; 93010; 93306; 94640; 94761; 94762; 94799; A9270; C9113; J0696; J1650; J2250; J3010; J7030; J7040; J7506; J7512; S0164

== ENCOUNTER 2019-05-28 18:44 | Inpatient (IN) ==
--- NOTE | 2019-05-28 20:23 | Diag Imaging Result Doc PS360 ---
EXAM: CT HEAD W/O CONTRAST HISTORY: LOC , seizures TECHNIQUE: CT head without contrast COMPARISON: 03/13/2017 FINDINGS: No parenchymal hemorrhage. No epidural or subdural hematoma. No subarachnoid hemorrhage. No mass identified on this noncontrasted exam. No hydrocephalus. No sinus opacification. IMPRESSION: No hemorrhage. Negative brain CT without contrast. This exam was performed using automated exposure control, adjustment of mA or kV according to patient size, and/or use of iterative reconstruction technique. Electronically signed by Stewart Abdul 05/28/2019 8:20 PM
--- NOTE | 2019-05-28 20:26 | PROVIDER DOCUMENTATION ---
HPI-Neurological Disorder - General Chief Complaint: Seizure Stated Complaint: SEIZURE LIKE ACTIVITY Time Seen by Provider: 05/28/19 19:19 Source: patient, family () Allergies/Adverse Reactions: Patient Allergies Allergy/AdvReac Type Severity Reaction Status Date / Time fentanyl AdvReac Unknown Verified 12/21/18 14:56 morphine AdvReac NAUSEA/VOMI Verified 12/21/18 14:56 TING Home Medications: Home Medication List Medication Instructions Recorded Confirmed Last Taken Type Sucralfate [Carafate Liquid] 1 gm PO Q6H #0 udc 09/10/16 12/21/18 12/20/18 09:00 Rx Levalbuterol Neb [Xopenex Neb] 1.25 mg INH RTQ4H PRN 12/21/18 12/21/18 12/20/18 17:00 History Alprazolam [Xanax] 1 mg PO TID PRN PRN tab 12/24/18 Unknown Rx Nicotine Patch [Nicoderm Patch] 14 mg TD DAILY patch.td24 12/24/18 Unknown Rx Sotalol [Betapace] 40 mg PO BID tab 12/24/18 Unknown Rx Amoxicillin/Potassium Clav 1 ea PO BID #10 tab 12/28/18 Unknown Rx [Augmentin 500-125 Tablet] Omeprazole [Prilosec] 40 mg PO BID #30 capsule. 12/28/18 Unknown Rx Oxycodone I.r. [Oxy Ir] 30 mg PO Q6H tab 12/28/18 Unknown Rx Pantoprazole [Protonix] 40 mg PO Q24H tab 12/28/18 Unknown Rx Sotalol [Betapace] 80 mg PO BID #60 tab 12/28/18 Unknown Rx - History of Present Illness-Neuro Nature of Presenting Problem: patient with childhood polio, anxiety, recently diagnosed lung cancer was brought to the ER today by ambulance. states she found patient bent to one side of his chair with both arms rigidly held across the his chest, eyes open and unresponsive with symptoms lasting about 5 mins. She thinks patient has been confused after then. patient takes xanax tid oprn and was not sure if he took his med today. He also takes hydrocordon for pain. Denies any fall or any other symptom Headache Location: reports: other (AMS) Onset/Duration: reports: 4-6 hours ago Timing: reports: improving Context: reports: none Character of Altered Mental Status: reports: confused (per ) Any recent trauma/injury?: reports: none New weakness or altered sensation location:: reports: none Cognitive Baseline: alert, oriented x3 Associated Symptoms: reports: denies symptoms Similar Symptoms Previously?: No Recently seen or treated by another doctor?: No - Seizure First time to have a seizure?: Yes Witnessed seizure?: Yes (by ) How many seizure episodes?: 1 Duration of episode? (mins): 5 Episode Frequency: no prior episodes Status Epilepticus: No Preceding symptoms/context:: none Character of Seizure: reports: lost consciousness Post-ictal Symptoms: reports: confusion (per ) Seizure related injury: none Review of Systems - Adult - REVIEW OF SYSTEMS - ADULT Constitutional: reports: no symptoms reported Eyes: reports: no symptoms reported Ears, Nose, Mouth & Throat: reports: no symptoms reported Cardiovascular: reports: no symptoms reported Respiratory: reports: no symptoms reported Gastrointestinal: reports: no symptoms reported Genitourinary: reports: no symptoms reported Musculoskeletal: reports: no symptoms reported Integumentary: reports: no symptoms reported Neurological: reports: see HPI Psychiatric: reports: no symptoms reported Endocrine: reports: no symptoms reported Hematologic/Lymphatic: reports: no symptoms reported Allergic/Immunologic: reports: no symptoms reported Past History - Adult - PAST MEDICAL HISTORY-ADULT Review of Records: reports: Nursing Assessment Review, Medications Reviewed, Social history reviewed & non-contributory. Major Childhood Illnesses: reports: Polio Cardiovascular: reports: CAD, PVD Respiratory: reports: other (lung cancer) Gastrointestinal: reports: denies history Genitourinary: reports: denies history Musculoskeletal: reports: other (abnormality due to polio) Neurological: reports: other (polio) - IMMUNIZATION STATUS Childhood Immunizations: See Nurse Assessment Flu Vaccine: See Nurse Assessment - FAMILY HISTORY Family History: reviewed, not pertinent - SOCIAL HISTORY Smoking: cigarettes Substance Use: none/never Alcohol Use Frequency: never Living Situation: family Physical Exam- Neurological - Physical Exam-Neuro General Appearance: appears well, no apparent distress, lethargic (slightly) Eye Exam: bilateral eye: PERRL HENMT: normocephalic/atraumatic Head Injury: no evidence of injury Neck: non-tender, full range of motion, supple Respiratory: chest non-tender, lungs clear Cardiovascular: regular rate, rhythm, no edema Abdominal Exam: non tender, soft Extremity: non-tender, no calf tenderness [employer] duty [employer] Exam: PERRL Motor/Sensory: weak motor strength LUE, weak motor strength RLE (due to polio), weak motor strength LLE Psych/Mental Status: oriented x 3 - Glascow Coma Scale Best Eye Response: (4) open spontaneously Best Verbal Response: (5) oriented Best Motor Response: (6) obeys commands Progress - PLAN OF CARE/RESULTS Progress/Plan/Lab Results: Vital Signs - 8 hr 05/28/19 18:51 05/28/19 18:53 05/28/19 18:54 Temperature 98.4 F Pulse Rate 92 H Respiratory Rate 18 Blood Pressure 116/85 116/85 O2 Sat by Pulse Oximetry 89 L 89 L 05/28/19 19:00 05/28/19 19:01 05/28/19 19:15 Temperature Pulse Rate 95 H 99 H 97 H Respiratory Rate 22 18 20 Blood Pressure 134/76 O2 Sat by Pulse Oximetry 93 L 92 L 91 L 05/28/19 19:30 05/28/19 19:31 05/28/19 19:45 Temperature Pulse Rate 93 H 90 82 Respiratory Rate 18 13 21 Blood Pressure 127/83 O2 Sat by Pulse Oximetry 88 L 90 L 95 05/28/19 20:00 05/28/19 20:01 05/28/19 20:15 Temperature Pulse Rate 90 104 H 85 Respiratory Rate 14 17 19 Blood Pressure 128/76 O2 Sat by Pulse Oximetry 98 99 100 05/28/19 20:30 05/28/19 20:31 05/28/19 20:45 Temperature Pulse Rate 85 87 81 Respiratory Rate 20 18 25 H Blood Pressure 132/80 O2 Sat by Pulse Oximetry 99 05/28/19 21:00 05/28/19 21:01 Temperature Pulse Rate 93 H 80 Respiratory Rate 22 18 Blood Pressure 128/87 O2 Sat by Pulse Oximetry 100 100 Laboratory Results - last 24 hr 05/28/19 05/28/19 05/28/19 20:39 20:39 21:16 WBC 6.07 RBC 4.09 L Hgb 12.5 L Hct 39.3 L MCV 96.1 MCH 30.6 MCHC 31.8 L RDW Std Deviation 15.0 H Plt Count 161 MPV 10.3 Immature Gran % (Auto) 0.5 Neut % (Auto) 80.6 H Lymph % (Auto) 9.9 L [place] % (Auto) 8.1 Eos % (Auto) 0.7 Baso % (Auto) 0.2 Immature Gran # (Auto) 0.03 Neut # (Auto) 4.90 Lymph # (Auto) 0.60 L [place] # (Auto) 0.49 Eos # (Auto) 0.04 Baso # (Auto) 0.01 Sodium Potassium Chloride Carbon Dioxide Anion Gap BUN Creatinine Estimated GFR/1.73 m2 BUN/Creatinine Ratio Glucose Calculated Osmolality Calcium Magnesium 1.9 Total Bilirubin AST ALT Alkaline Phosphatase Total Protein Albumin Globulin Albumin/Globulin Ratio Plasma Lactate Urine Source VOIDED Urine Color YELLOW Urine Turbidity CLEAR Urine pH 8.5 Ur Specific [place] 1.010 Urine Protein TRACE A Ur Glucose (Stick) NEGATIVE Ur Ketones (Stick) NEGATIVE Urine Blood NEGATIVE Urine Nitrite NEGATIVE Urine Bilirubin NEGATIVE Urobilinogen Dipstick NORMAL Urine Leukocytes NEGATIVE Urine WBC (Auto) <10 Urine RBC (Auto) <10 U Epithel Cells (Auto) <10 Urine Bacteria (Auto) NEGATIVE 05/28/19 05/28/19 22:06 22:06 WBC RBC Hgb Hct MCV MCH MCHC RDW Std Deviation Plt Count MPV Immature Gran % (Auto) Neut % (Auto) Lymph % (Auto) [place] % (Auto) Eos % (Auto) Baso % (Auto) Immature Gran # (Auto) Neut # (Auto) Lymph # (Auto) [place] # (Auto) Eos # (Auto) Baso # (Auto) Sodium 138 Potassium 4.1 Chloride 94 L Carbon Dioxide 36 H Anion Gap 8 BUN 9 Creatinine 0.7 Estimated GFR/1.73 m2 > 60 BUN/Creatinine Ratio 13 Glucose 111 H Calculated Osmolality 275 Calcium 8.9 Magnesium Total Bilirubin 0.57 AST 12 ALT 5 L Alkaline Phosphatase 74 Total Protein 6.1 L Albumin 3.6 Globulin 2.5 Albumin/Globulin Ratio 1.4 Plasma Lactate 1.0 Urine Source Urine Color Urine Turbidity Urine pH Ur Specific [place] Urine Protein Ur Glucose (Stick) Ur Ketones (Stick) Urine Blood Urine Nitrite Urine Bilirubin Urobilinogen Dipstick Urine Leukocytes Urine WBC (Auto) Urine RBC (Auto) U Epithel Cells (Auto) Urine Bacteria (Auto) Orders Category Date Time Status CT HEAD W/O CONTRAST [CT] Stat Exams 05/28/19 19:38 Completed cxr [CHEST-PORTABLE] [RAD] Stat Exams 05/29/19 00:19 Ordered BLOOD CULTURE [BLDCUL] Stat Lab 05/28/19 20:39 Results CBC WITH DIFF [HEME] Stat Lab 05/28/19 20:39 Completed COMPREHENSIVE METABOLIC PANEL [CHEM] Stat Lab 05/28/19 22:06 Completed LACTATE, PLASMA [CHEM] Stat Lab 05/28/19 22:06 Completed MAGNESIUM [CHEM] Stat Lab 05/28/19 20:39 Completed URINALYSIS [URINALYSIS] Stat Lab 05/28/19 21:16 Completed 0.9% Sodium Chloride Inj [Ns] 1,000 ml Med 05/28/19 21:37 Discontinued IV 999 mls/hr Diltiazem [Cardizem] Med 05/28/19 22:50 Discontinued 10 mg IV NOW ONE Diltiazem [Cardizem] Med 05/28/19 23:40 Discontinued 10 mg IV NOW ONE Lorazepam [Ativan] Med 05/28/19 22:14 Discontinued 1 mg IV NOW ONE EKG [EKG] Stat Ther 05/28/19 19:38 Draft Result Diagrams: 05/28/19 20:39 05/28/19 22:06 - REASSESSMENT Reassessment #1 Status: worsening (Patient noted to be having jerky movements of the upper extremities, awake and oriented x 3. monitor readings reveals tarchycardia of 130 to 150 not responding well to fluids. BP is 106 systolic. says her normally runs in the 90s. He has been given lorazepam 10mins again. John obtain EKG, give cardizen) Reassessment #2 Time Reassessed: 23:37 Status: improving (pulse is improving with initial dose of cardizen , now between 115 and 125 with improved bp. Systolic now up to 120. Will give 2nd dose of cardizen.) Reassessment #3 Status: improving (patient now in sinus rrythm after 2nd dose of cardizen. No change in BP. Discussed admission with Dr Chaparro) - CT/MRI 1 CT Study: Head ( EXAM: CT HEAD W/O CONTRAST HISTORY: LOC , seizures TECHNIQUE: CT head without contrast COMPARISON: 03/13/2017 FINDINGS: No parenchymal hemorrhage. No epidural or subdural hematoma. No subarachnoid hemorrhage. No mass identified on this noncontrasted exam. No hydrocephalus. No sinus opacification. IMPRESSION: No hemorrhage. Negative brain CT without contrast. This exam was performed using automated exposure control, adjustment of mA or kV according to patient size, and/or use of iterative reconstruction technique. Electronically signed by Stewart Abdul 05/28/2019 8:20 PM) - CONSULTS/PCP/HOSPITALIST Notification #1 *Consult/PCP/Hospitalist*: Dr Chaparro- hospitalist Time Discussed: 00:23 Consult Disposition: Admit Departure - Departure Date of Disposition Decision: 05/29/19 Time of Disposition Decision: 00:23 DIAGNOSIS: AMS (altered mental status) Qualifiers: Altered mental status type: transient alteration of awareness Qualified Code(s): R40.4 - Transient alteration of awareness A-fib Qualifiers: Atrial fibrillation type: unspecified Qualified Code(s): I48.91 - Unspecified atrial fibrillation Disposition: ADMITTED INPATIENT 09 Certified Medical Emergency: Emergent Condition: Critical Referrals and Follow-Ups: Antonio Diaz MD [Primary Care Provider] - - Critical Care Note This patient required my direct & personal management of CC.: Yes Total Time (mins): 39 Critical Care Statement: This patient required my direct personal management to treat or rule out processes, the absence of which, could potentiallly result in sudden, clinically significant life or limb threatening deterioration. Attestation - Physician/ NIGEL Attestation Patient care was provided by Advanced Practice Provider:: No The physician spent face to face time with patient:: Yes Advanced Practice Provider documentation review:: Supervising physician onsite and consulted in the evaluation and care of this patient. The physician did have a face to face encounter with the patient.
[2019-05-28 20:57] LABS: BASO# 0.01 X1000 (0.0-0.2); BASO% 0.2 % (0.0-0.8); EOS# 0.04 X1000 (0.0-0.7); EOS% 0.7 % (0.0-10.0); HEMATOCRIT 39.3 % (42.0-52.0); HEMOGLOBIN 12.5 g/dL (14.0-18.0); IMM GRAN# 0.03 X1000 (0.0-0.04); IMM GRAN% 0.5 % (0.0-0.5); LYMPH% 9.9 % (20.5-51.1); MCH 30.6 PG (27-31); MCHC 31.8 g/dL (33-37); MCV 96.1 FL (81-99); MONO# 0.49 X1000 (0.11-0.59); MONO% 8.1 % (1.7-9.3); MPV 10.3 FL (7.4-10.4); NEUT% 80.6 % (42.2-75.2); PLT 161 X1000 (130-400); RBC 4.09 XMIL (4.7-6.1); WBC 6.07 X1000 (4.8-10.8)
[2019-05-28 21:22] LABS: URINE SOURCE VOIDED
[2019-05-28 21:34] LABS: BILIRUBIN URINE NEGATIVE (NEGATIVE); BLOOD URINE NEGATIVE (NEGATIVE); COLOR YELLOW; GLUCOSE URINE NEGATIVE (NEGATIVE); KETONE URINE NEGATIVE (NEGATIVE); LEUKOCYTES URINE NEGATIVE (NEGATIVE); NITRITE URINE NEGATIVE (NEGATIVE); PH URINE 8.5; PROTEIN URINE TRACE mg/dL (NEGATIVE); TURBIDITY URINE CLEAR (CLEAR); UROBILINOGEN URINE NORMAL (NORMAL)
[2019-05-28 21:35] LABS: UR EPITHELIAL CELLS <10 /HPF (<10); URINE BACTERIA NEGATIVE /HPF; URINE RBC <10 /HPF (<10); URINE WBC <10 /HPF (<10)
[2019-05-28] MEDS ORDERED: NS 1,000 ML IV ONE (21:37)
--- NOTE | 2019-05-28 21:57 | EKG Report ---
Test Performed on : 05/28/2019 8:59:35 PM Test Reason : LOC Blood Pressure : / mmHG Vent. Rate : 083 BPM Atrial Rate : 083 BPM P-R Int : 160 ms QRS Dur : 078 ms QT Int : 356 ms P-R-T Axes : 080 094 066 degrees QTc Int : 418 ms Sinus rhythm. with occasional premature ventricular complexes. Right atrial enlargement Rightward axis Anterior infarct , age undetermined Abnormal ECG When compared with ECG of 24-DEC-2018 20:40, premature ventricular complexes. are now present Vent. rate has increased BY 29 BPM Anterior infarct is now present Unconfirmed Result
[2019-05-28] MEDS ORDERED: ATIVAN IV ONE (22:14)
[2019-05-28 22:45] LABS: AGAP 8; ALB/GLOB RATIO 1.4; ALBUMIN 3.6 g/dL (3.5-5.0); ALKALINE PHOSPHATASE 74 U/L (32-122); BUN 9 mg/dL (8-22); CALCIUM 8.9 mg/dL (8.8-10.2); CHLORIDE 94 mmol/L (98-107); COSMO 275; CREATININE 0.7 mg/dL (0.7-1.2); ESTIMATED GFR > 60; GLUCOSE 111 mg/dL (70-104); GOT 12 U/L (10-34); GPT 5 U/L (10-44); POTASSIUM 4.1 mmol/L (3.5-5.1); SODIUM 138 mmol/L (136-145); TCO2 36 mmol/L (25-35); TOTAL BILIRUBIN 0.57 mg/dL (0.20-1.00); TOTAL PROTEIN 6.1 g/dL (6.3-8.3)
[2019-05-28] MEDS ORDERED: CARDIZEM IV ONE ×2 (22:50→23:40)
--- NOTE | 2019-05-29 00:35 | EKG Report ---
Test Performed on : 05/28/2019 10:48:00 PM Test Reason : seizure like activity Blood Pressure : / mmHG Vent. Rate : 142 BPM Atrial Rate : 131 BPM P-R Int : 000 ms QRS Dur : 068 ms QT Int : 302 ms P-R-T Axes : 000 093 044 degrees QTc Int : 464 ms Atrial fibrillation. with rapid ventricular response. Rightward axis Abnormal ECG When compared with ECG of 28-MAY-2019 20:59, (Unconfirmed) Atrial fibrillation. has replaced Sinus rhythm. Vent. rate has increased BY 59 BPM Confirmed by Pravin Marin MD ([id number]) on 05/29/2019 10:52:28 AM
[2019-05-29] MEDS ORDERED: ZOFRAN IV PRN (02:20)
[2019-05-29] MEDS ORDERED: NS 1,000 ML IV SCH (02:20)
[2019-05-29] MEDS: LOVENOX SUBQ SCH (02:35)
[2019-05-29] MEDS ORDERED: OXY IR PO ONE (03:19)
[2019-05-29] MEDS: XOPENEX NEB INH PRN ×5 (03:40→19:45)
--- NOTE | 2019-05-29 03:51 | HISTORY AND PHYSICAL ---
PRIMARY CARE PHYSICIAN: Dr. Diaz. CHIEF COMPLAINT: Altered mental status, confusion. HISTORY OF PRESENTING ILLNESS: This is a 59-year-old male with a history of lung cancer, COPD anxiety disorder and post-polio syndrome. He was brought to the emergency department because found patient somewhat unresponsive. She states that he was having some jerking spells or so. He was brought to the emergency department. He was evaluated there. Initially it was thought that possibly he had a seizure. However, he was alert, and talking and not really altered. The patient during his evaluation in the ED went into atrial fibrillation with rapid ventricular response. He was given IV Cardizem and due to his overall presenting symptoms he will require admission for further management. At the time of my examination, patient denied any headache, fever, chills, chest pain, or any weight changes, but states that he did not feel well. PAST MEDICAL HISTORY: Includes post-polio syndrome, lung cancer, anxiety disorder, COPD. PAST SURGICAL HISTORY: Bilateral feet deformity and multiple leg surgeries, abdominal surgeries. ALLERGIES: Fentanyl and morphine. CURRENT MEDICATIONS: Xanax 1 mg p.o. t.i.d., levalbuterol nebulizers q.4 hours, omeprazole 40 mg p.o. b.i.d., oxycodone 30 mg p.o. q.6 hours, pantoprazole 40 mg p.o. 24 hours, sotalol 40 mg p.o. b.i.d. SOCIAL HISTORY: A 40 pack years history of smoking. No history of alcohol or illicit drug use. FAMILY HISTORY: Positive for coronary artery disease in father. REVIEW OF SYSTEMS: Fourteen point review of systems as listed in HPI. Other systems negative. PHYSICAL EXAMINATION: GENERAL: Cooperative, friendly male. He is resting more comfortably now. VITAL SIGNS: Temperature 98.4 degrees, pulse 92, respiration 18, blood pressure 116/85. Patient's pulse had increased to 140. HEENT: Atraumatic, normocephalic. PERRLA. NECK: No masses. CHEST: Clear to auscultation. CARDIOVASCULAR: Irregular. ABDOMEN: Soft, nontender. EXTREMITIES: Trace edema. NEUROLOGIC: He is awake, alert, oriented x2. GENITOURINARY: No bladder distention. SKIN: Warm. LABORATORIES AND STUDIES: WBC 6.07, hemoglobin 12.5, hematocrit 39.3, platelets 161,000. Sodium 138, potassium 4.1, chloride 94, CO2 is 36, BUN is 9, creatinine 0.7, glucose 111. CT of the head was negative. EKG shows atrial fibrillation with rapid ventricular response. ASSESSMENT: A 59-year-old male with a history of post-polio syndrome, lung cancer, anxiety disorder and chronic obstructive pulmonary disease, who was brought to the emergency department due to patient having mental status changes. Apparently, was concerned he was having some jerking sensations. He was evaluated in the emergency department. He apparently went into atrial fibrillation with RVR and subsequently he was given Cardizem. Due to his presenting symptoms, he will require admission for further management. 1. Altered mental status. 2. Suspected seizures. 3. Atrial fibrillation with rapid ventricular response. 4. Chronic obstructive pulmonary disease. 5. Lung cancer. 6. Anxiety disorder. PLAN: 1. We will admit patient to ICU. 2. We will continue with neuro checks. 3. We will put patient on seizure precautions. 4. Patient's rate seemed to be controlled, but we will start Cardizem drip if it increases. 5. We will continue with DuoNebs p.r.n. 6. We will also consult Cardiology. 7. Restart his home medications. 8. We will put patient on DVT prophylaxis with SCDs. 9. We will continue to follow, and reassess and make further rate recommendation based on patient's clinical course. cc: MD Antonio Longoria MD
--- NOTE | 2019-05-29 09:40 | Diag Imaging Result Doc PS360 ---
EXAM: CHEST-PORTABLE - 05/29/2019 HISTORY: evaluation of tachycardia TECHNIQUE: Portable chest one view COMPARISON: 12/28/2018 FINDINGS: Heart size is normal. There are severe COPD/emphysematous changes. There is scarring along right minor fissure. Lungs appear grossly clear of acute changes. There is no pleural effusion or pneumothorax identified. Central venous catheter remains in place. IMPRESSION: Severe COPD/emphysematous changes. No other evidence of acute disease. Electronically signed by Matt Dozier 05/29/2019 9:37 AM
[2019-05-29] MEDS ORDERED: CARDIZEM IV ONE (09:49)
[2019-05-29] MEDS ORDERED: CARDIZEM 125 MG/D5W 125 MG/125 ML IVPB IV SCH (10:00)
[2019-05-29] MEDS ORDERED: CARDIZEM 100 MG/NS 100 MG/100 ML IVPB IV SCH (10:00)
[2019-05-29] MEDS ORDERED: SODIUM CHLORIDE 0.9% INJ SCH (10:30)
[2019-05-29] MEDS: OXY IR PO PRN ×3 (10:36→23:35)
[2019-05-29] MEDS: XANAX PO PRN ×2 (10:36→16:49)
[2019-05-29] MEDS: CLINIMIX E 4.25%-5% SOLUTION 1,000 ML IV SCH ×2 (10:37→20:44)
[2019-05-29] MEDS: NEXIUM IV SCH (10:50)
[2019-05-29] MEDS ORDERED: NICODERM PATCH TD ONE (12:00)
--- NOTE | 2019-05-29 12:11 | PROGRESS NOTE ---
DATE: 05/29/2019 SUBJECTIVE: This is a 59-year-old white male admitted last night by hospitalist in ICU for not able to eat and rapid atrial fibrillation. Patient's is at bedside. The patient is very cachectic. Interval history was reviewed. PAST MEDICAL HISTORY: Reviewed. PAST SURGICAL HISTORY: Reviewed. MEDICINES: Reviewed. ALLERGIES: Fentanyl and morphine. PHYSICAL EXAMINATION: Vital signs: Temperature is 97.5 degrees, pulse 67, blood pressure is 134/71. Weight 102 pounds. General Appearance: Very cachectic. Bitemporal wasting. He has multiple skin lesions on the scalp seen. He has a port on the right side of the chest. Chest: Poor air entry. Heart: Sounds are irregular. Pectus excavatum of the chest noted. Abdomen: Belly is soft, scaphoid. Skin: Poor skin turgor and skin and bones with bony prominence noted. Neurologic: The patient is in mild respiratory distress on Ventimask. INVESTIGATIONS: CBC: White cell count 6, hematocrit 39, platelets 161,000. SMA-7 is normal. LFTs were normal. Urinalysis is clear. Chest x-ray with COPD, port on the right side. There is scarring in the right minor fissure. CT of head with no hemorrhage. EKG: In atrial fibrillation. ASSESSMENT AND PLAN: 1. A 59-year-old white male with history of left upper lobe adenocarcinoma with underlying COPD, had radiation therapy under the care of Dr. Diehl and waiting for repeat PET scan. 2. Deconditioning. 3. Severe protein calorie malnutrition. 1. Atrial fibrillation. 2. Chronic pain. PLAN OF CARE: 1. Continues to smoke. Nicotine patch. 2. Improve the nutrition with IV Clinimix and Boost. Maybe need to add megestrol. 3. Deep vein thrombosis and gastrointestinal prophylaxis with Lovenox and IV Nexium. 4. Chronic anxiety, on Xanax and chronic pain, on oxycodone. 5. Continue on MiraLAX. 6. Atrial fibrillation. Dr. Jin was consulted. Start on IV Cardizem drip for rate control. 7. Living will. Discussed DNR. 8. Check the labs in the morning. LEVEL OF DOCUMENTATION: 35 minutes. cc: MD Antonio Simpson MD
--- NOTE | 2019-05-29 13:55 | CONSULTATION ---
DATE OF CONSULTATION: 05/29/2019 IMPRESSION: 1. Recurrent atrial fibrillation with rapid ventricular rate. The patient had previous atrial fibrillation back in 12/2018 during hospitalization for pneumothorax following lung biopsy. 2. Metastatic lung cancer. 3. Severe chronic obstructive pulmonary disease requiring chronic home oxygen. 4. Hypertension. 5. Post-polio syndrome. RECOMMENDATIONS: 1. The patient has converted back into sinus rhythm. Therefore, I think it would be best to start him on amiodarone to try and suppress any further atrial fibrillation which appears to be recurrent/paroxysmal. 2. Consider merits of anticoagulation. However, his CHADS VASC score is limited to peripheral artery disease. For now, will hold off on initiating anticoagulation and utilize aspirin p.o. daily. 3. Conservative cardiovascular management overall. HISTORY: This 59-year-old white male with past history of metastatic lung cancer, severe COPD, previous atrial fibrillation, and post-polio syndrome, was admitted through the emergency room after he manifested an episode of unresponsiveness. The patient was seated in a chair and about to eat meal when he became unresponsive. He appeared to manifest some jerking. He subsequently came around and was somewhat confused. He was brought to the emergency room, and while in the emergency room, went into atrial fibrillation with rapid ventricular response. He denies any palpitations or chest pain. He was hospitalized back in the spring of this year with atrial fibrillation manifest during his stay for pneumothorax following lung biopsy. At that time, he was treated with low-dose sotalol and maintain sinus rhythm. However, sotalol has not been continued since that time. PAST MEDICAL HISTORY: 1. Metastatic lung cancer. 2. Peripheral vascular disease. 3. Severe chronic obstructive pulmonary disease. 4. Gastritis. 5. Post-polio syndrome. 6. Hypertension. ALLERGIES: He is allergic or intolerant to fentanyl and morphine. MEDICATIONS PRIOR TO ADMISSION: As listed. SOCIAL HISTORY: He is . He continues to smoke. FAMILY HISTORY: Positive for cancer and coronary disease. REVIEW OF SYSTEMS: Pulmonary: Noteworthy for chronic dyspnea but negative for orthopnea. Gastrointestinal: Noncontributory beyond history of present illness. Constitutional: Noteworthy for considerable weight loss over the past 6 months but otherwise remainder of review of systems negative/noncontributory with 14 total systems reviewed. PHYSICAL EXAMINATION: General: This is a thin, older, middle-aged white male in no distress. Vital signs: Blood pressure 132/75, heart rate 74, oxygen saturation 95%. HEENT: Extraocular movements appear intact. Mucous membranes are moist. Neck: Supple. No jugular venous distention. There are no carotid bruits. Chest: Clear to auscultation. Cardiac Exam: Reveals a regular rate and rhythm without appreciable murmur or gallop. There is no evidence of peripheral edema. LABORATORY DATA: Includes a white blood cell count 6.07, hematocrit 39.3, hemoglobin 12.5, platelet count 161. Sodium 138, potassium 4.1, chloride 94, carbon dioxide 36. BUN 9, creatinine 0.7, glucose 111. Albumin 3.6. PERTINENT DATA: Twelve lead EKG obtained last night demonstrates atrial fibrillation. A 12-lead EKG obtained last night demonstrates sinus rhythm and is otherwise within normal limits. Twelve- lead EKG obtained around midnight last night demonstrates atrial fibrillation with rapid ventricular rate and rightward axis. ECG monitor currently shows sinus rhythm. cc: MD Antonio Wilson MD
--- NOTE | 2019-05-29 16:21 | EKG Report ---
Test Performed on : 05/29/2019 10:47:16 AM Test Reason : PAF Blood Pressure : / mmHG Vent. Rate : 075 BPM Atrial Rate : 075 BPM P-R Int : 166 ms QRS Dur : 078 ms QT Int : 386 ms P-R-T Axes : 073 094 062 degrees QTc Int : 431 ms Normal sinus rhythm. Rightward axis T wave abnormality, consider anterior ischemia Abnormal ECG When compared with ECG of 29-MAY-2019 09:41, (Unconfirmed) Sinus rhythm. has replaced Atrial fibrillation. Vent. rate has decreased BY 71 BPM Non-specific change in ST segment in Inferior leads ST no longer depressed in Anterior leads Nonspecific T wave abnormality no longer evident in Inferior leads Confirmed by Tania TOURE, Pravin Gannon ([id number]) on 05/30/2019 7:23:55 AM
--- NOTE | 2019-05-29 16:21 | EKG Report ---
Test Performed on : 05/29/2019 09:41:34 AM Test Reason : AFIB Blood Pressure : / mmHG Vent. Rate : 146 BPM Atrial Rate : 234 BPM P-R Int : 000 ms QRS Dur : 070 ms QT Int : 302 ms P-R-T Axes : 000 090 027 degrees QTc Int : 470 ms Atrial fibrillation. with rapid ventricular response. Rightward axis Nonspecific ST abnormality Abnormal ECG No previous ECGs available Confirmed by Tania TOURE, Pravin Gannon ([id number]) on 05/30/2019 7:23:46 AM
[2019-05-29] MEDS: CORDARONE PO SCH (16:49)
[2019-05-29] MEDS ORDERED: LOPRESSOR IV PRN (17:11)
[2019-05-30] MEDS: LOVENOX SUBQ SCH (01:34)
[2019-05-30] MEDS: XANAX PO PRN ×2 (04:08→18:18)
[2019-05-30 06:27] LABS: BASO# 0.01 X1000 (0.0-0.2); BASO% 0.1 % (0.0-0.8); EOS% 1.4 % (0.0-10.0); HEMOGLOBIN 11.4 g/dL (14.0-18.0); LYMPH# 0.55 X1000 (1.2-3.4); LYMPH% 7.8 % (20.5-51.1); MCH 29.4 PG (27-31); MCV 97.9 FL (81-99); MONO# 0.63 X1000 (0.11-0.59); MONO% 8.9 % (1.7-9.3); MPV 9.8 FL (7.4-10.4); NEUT# 5.79 X1000 (1.4-6.5); NEUT% 81.8 % (42.2-75.2); PLT 135 X1000 (130-400); RBC 3.88 XMIL (4.7-6.1); RDW 14.5 % (11.5-14.5); WBC 7.08 X1000 (4.8-10.8)
[2019-05-30 07:06] LABS: AGAP 9; ALKALINE PHOSPHATASE 64 U/L (32-122); BUN 21 mg/dL (8-22); CALCIUM 8.7 mg/dL (8.8-10.2); CHLORIDE 94 mmol/L (98-107); COSMO 273; CREATININE 0.6 mg/dL (0.7-1.2); ESTIMATED GFR > 60; GLUCOSE 90 mg/dL (70-104); GOT 13 U/L (10-34); GPT 5 U/L (10-44); POTASSIUM 4.1 mmol/L (3.5-5.1); SODIUM 135 mmol/L (136-145); TCO2 32 mmol/L (25-35); TOTAL BILIRUBIN 0.56 mg/dL (0.20-1.00); TOTAL PROTEIN 6.1 g/dL (6.3-8.3)
[2019-05-30] MEDS: CLINIMIX E 4.25%-5% SOLUTION 1,000 ML IV SCH ×3 (07:35→17:36)
[2019-05-30] MEDS: OXY IR PO PRN ×3 (07:35→21:18)
[2019-05-30] MEDS: NICODERM PATCH TD SCH (08:46)
[2019-05-30] MEDS: CORDARONE PO SCH ×3 (08:46→17:14)
[2019-05-30] MEDS: MIRALAX PO SCH (08:46)
[2019-05-30] MEDS: NEXIUM IV SCH (10:20)
--- NOTE | 2019-05-30 14:12 | Diag Imaging Result Doc PS360 ---
EXAM: CT HEAD W/CONTRAST HISTORY: Lung CA r/o METS TECHNIQUE: CT head without contrast COMPARISON: 05/28/2019 FINDINGS: No parenchymal hemorrhage. No epidural or subdural hematoma. No subarachnoid hemorrhage. No mass or midline shift. No enhancing lesion on the post contrasted images. No hydrocephalus. No sinus opacification. IMPRESSION: Normal brain CT with intravenous contrast. If clinical suspicion persists an MRI is recommended. This exam was performed using automated exposure control, adjustment of mA or kV according to patient size, and/or use of iterative reconstruction technique. Electronically signed by Stewart Abdul 05/30/2019 2:09 PM
--- NOTE | 2019-05-30 14:47 | PROGRESS NOTE ---
DATE: 05/30/2019 SUBJECTIVE: The patient has intermittently gone from sinus rhythm to atrial fibrillation but appears to be maintaining sinus rhythm more and more. He denies any chest discomfort or shortness of breath, on supplemental oxygen per nasal cannula. OBJECTIVE: Blood pressure 107/75, heart rate 82, oxygen saturation 96% on nasal cannula oxygen. There is no significant jugular venous distention. Chest is clear to auscultation with diminished breath sounds diffusely. Cardiac Examination: Reveals a regular rate and rhythm without appreciable murmur or gallop. Extremities are without edema. Laboratory Data: Includes a white blood cell count of 7.08, hematocrit 38.0, hemoglobin 11.4, platelet count 135,000. Sodium 135, potassium 4.1, chloride 94, carbon dioxide 32, BUN 21, creatinine 0.6, glucose 90. IMPRESSION: 1. Paroxysmal atrial fibrillation. 2. Metastatic lung cancer. 3. Severe chronic obstructive pulmonary disease requiring chronic home oxygen. 4. Hypertension. 5. Postpolio syndrome. RECOMMENDATIONS: 1. Continue amiodarone 2 mg p.o. t.i.d., transitioning to a lower dose as patient maintains sinus rhythm. 2. Consider merits of anticoagulation. However, decision to anticoagulate is complicated by metastatic lung cancer and debility. cc: MD Antonio Wilson MD
--- NOTE | 2019-05-30 17:58 | Diag Imaging Result Doc PS360 ---
EXAM: ABDOMEN FLAT/UPRIGHT 05/30/2019 HISTORY: pain TECHNIQUE: Flat and upright abdomen COMMENT: There is a fairly large amount of gas in the colon with some fecal debris present particularly in the ascending colon and rectosigmoid. There is also some small bowel gas but no evidence of dilatation is present and there is no evidence of organomegaly or mass. The lungs are hyperinflated and there is some fibrosis and/or atelectasis in the lung bases. IMPRESSION: Constipation. The possibility of ileus cannot be excluded. Electronically signed by Guillermo Squires 05/30/2019 5:56 PM
--- NOTE | 2019-05-30 18:32 | PROGRESS NOTE ---
DATE: 05/30/2019 SUBJECTIVELY: Mr. Nunes is doing better. No seizure-type episode. Denied any chest pain. The patient does have chronic cough with scanty sputum production. No diarrhea, blood, or mucus in the stool. The patient was admitted with altered mental status, questionable seizure-type episode, known case of lung cancer, gastritis. Admission history, physical, and cardiology consult noted. OBJECTIVE: Vital Signs: Reviewed. Neck: Supple. No JVD. Lungs: Bibasilar crepitations. Heart: S1 and S2. Tachycardia. Abdomen: Soft, scaphoid. Bowel sounds present. Extremities: No cyanosis, clubbing. The patient does have some atrophy of lower limbs, post-polio syndrome. CRACK OFF PERSON: Alert, awake. Answering questions fairly well. LABORATORY DATA: Done today, hemoglobin 11.4, hematocrit 38, WBC count 7.08, platelet count 135,000. Electrolytes were fairly benign. CEA level was 4.5. Patient's chest x-ray done on admission noted, which revealed severe COPD, emphysematous changes. Unfortunately, patient is still smoking. Magnesium level was 1.9. CONSIDERATION: Patient admitted with altered mental status. I doubt about seizure, could be vasovagal syncope. The patient does have atrial fibrillation with rapid ventricular response, chronic obstructive pulmonary disease, history of lung cancer, chronic pain, constipation, weight loss, elevated CEA level. I evaluated the patient this morning and again now. Overall patient is improving. I am going to transfer him to PVC unit which is a step-down unit. Patient and family are in agreement. cc: Antonio Diaz MD
[2019-05-30] MEDS ORDERED: TYLENOL PO PRN (19:17)
[2019-05-30] MEDS ORDERED: LINZESS PO ONE (20:50)
[2019-05-31] MEDS: XANAX PO PRN ×3 (01:23→21:38)
[2019-05-31] MEDS: OXY IR PO PRN ×3 (03:51→21:38)
[2019-05-31 05:45] LABS: BASO# 0.01 X1000 (0.0-0.2); BASO% 0.2 % (0.0-0.8); EOS# 0.17 X1000 (0.0-0.7); EOS% 3.3 % (0.0-10.0); HEMATOCRIT 39.6 % (42.0-52.0); HEMOGLOBIN 11.9 g/dL (14.0-18.0); LYMPH# 0.69 X1000 (1.2-3.4); LYMPH% 13.5 % (20.5-51.1); MCH 29.1 PG (27-31); MCHC 30.1 g/dL (33-37); MCV 96.8 FL (81-99); MONO# 0.62 X1000 (0.11-0.59); MONO% 12.1 % (1.7-9.3); MPV 10.1 FL (7.4-10.4); NEUT# 3.63 X1000 (1.4-6.5); NEUT% 70.9 % (42.2-75.2); PLT 142 X1000 (130-400); RBC 4.09 XMIL (4.7-6.1); RDW 14.3 % (11.5-14.5); WBC 5.12 X1000 (4.8-10.8)
[2019-05-31] MEDS: CLINIMIX E 4.25%-5% SOLUTION 1,000 ML IV SCH ×2 (05:47→21:33)
[2019-05-31 06:03] LABS: AGAP 12; ALBUMIN 3.1 g/dL (3.5-5.0); ALKALINE PHOSPHATASE 66 U/L (32-122); BUN 30 mg/dL (8-22); CHLORIDE 95 mmol/L (98-107); COSMO 282; CREATININE 0.7 mg/dL (0.7-1.2); ESTIMATED GFR > 60; GLUCOSE 109 mg/dL (70-104); GOT 14 U/L (10-34); GPT 6 U/L (10-44); PHOSPHORUS 4.7 mg/dL (2.7-4.5); POTASSIUM 4.6 mmol/L (3.5-5.1); SODIUM 138 mmol/L (136-145); TCO2 31 mmol/L (25-35); TOTAL BILIRUBIN 0.38 mg/dL (0.20-1.00); TOTAL PROTEIN 6.1 g/dL (6.3-8.3)
[2019-05-31] MEDS ORDERED: DULCOLAX PR ONE (07:02)
[2019-05-31] MEDS ORDERED: LASIX IV ONE (07:04)
--- NOTE | 2019-05-31 07:25 | PROGRESS NOTE ---
DATE: 05/31/2019 SUBJECTIVE: Mr. Nunes is doing fair. The patient had chest congestion and cough with yellowish expectoration. Claims to have low-grade fever. No nausea or vomiting. No chest pain. Abdominal x-ray did reveal constipation I did given him Linzess, did not have good result. Oral intake is fair. His CEA level was elevated. The patient is being followed up by oncologist. No recent seizure-type episode. OBJECTIVE: Vital Signs: Noted. Neck: Supple. No JVD. Lungs: Bibasilar crepitations. Heart: S1 and S2 heard. Abdomen: Soft. No distention. Bowel sounds present. TRANSFER ENGINEER: Alert, awake answering questions fairly well. ASSESSMENT/PLAN: I am going to get sputum culture, added Rocephin. Patient problem includes acute bronchitis. The patient does have underlying chronic obstructive pulmonary disease, constipation, history of lung cancer, questionable seizure which I doubt. EEG result is pending. We will continue current treatment. Close observation. I am going to get chest x-ray. Start the patient on small dose of steroid. cc: Antonio Diaz MD
[2019-05-31] MEDS: NICODERM PATCH TD SCH (08:23)
[2019-05-31] MEDS: MIRALAX PO SCH (08:23)
[2019-05-31] MEDS: ROCEPHIN 1 GM in NS 50 ML IV SCH (08:24)
[2019-05-31] MEDS: CORDARONE PO SCH ×3 (08:26→21:33)
[2019-05-31] MEDS: LOVENOX SUBQ SCH (08:26)
[2019-05-31] MEDS: PREDNISONE PO SCH (08:38)
[2019-05-31] MEDS: NEXIUM IV SCH (10:30)
--- NOTE | 2019-05-31 12:36 | EEG REPORT ---
DATE: 05/30/2019 REFERRING PHYSICIAN: Dr. Jin. HOUSE STEWARD/STEWARDESS: Diana Black. BACKGROUND INFORMATION/TECHNIQUE: This is a digitally recorded routine EEG with video. HISTORY: A 59-year-old male patient, admitted after an episode in which he was seated and about to eat a meal, but became unresponsive. He appeared to have some amount of jerking. He came around and was somewhat confused, and was taken to the emergency room. He went into atrial fibrillation with RVR while in the ED. EEG is ordered to detect evidence of seizures. MEDICATIONS: Include oxycodone p.r.n. and Xanax. EEG FINDINGS: A moderately well-formed 10 Hz posterior dominant alpha rhythm is seen symmetrically in the occipital regions, and attenuates with eye opening. The anterior background at maximal alertness consists of mixed alpha and beta range frequencies. No definite persistent focal slowing. No epileptiform discharges. No seizures. Hyperventilation is not performed. Photic stimulation induces a normal driving response. The patient becomes drowsy briefly, but stage II sleep is not seen. EKG demonstrates regular intervals. IMPRESSION AND CLINICAL CORRELATION: Normal routine electroencephalogram in the awake and drowsy state. Of note, a normal electroencephalogram does not rule out epilepsy. Clinical correlation is recommended. cc: MD West Rodriguez MD Bharat K. Vakharia, MD
--- NOTE | 2019-05-31 15:13 | PROGRESS NOTE ---
DATE: 05/31/2019 SUBJECTIVE: Patient continues without chest discomfort or shortness of breath on supplemental oxygen. Appetite remains poor. OBJECTIVE: Vital signs: Blood pressure 87/64, heart rate 110, with ECG monitor showing sinus rhythm. Oxygen saturation 93%. Neck: There is no significant jugular venous distention. Chest: Chest is clear to auscultation bilaterally. Cardiac: Reveals a regular rate and rhythm without appreciable murmur or gallop. Extremities: Without edema. LABORATORY DATA: Includes a white blood cell count of 5.12, hematocrit 39.6, hemoglobin 11.9, platelet count 142,000. Sodium 138, potassium 4.6, chloride 95, carbon dioxide 31, BUN 30, creatinine 0.7, glucose 109. Head CT was contrast negative. EEG negative for seizure activity. IMPRESSION: 1. Paroxysmal atrial fibrillation. Patient continues in sinus rhythm on amiodarone. 2. Metastatic lung cancer. 3. Severe chronic obstructive pulmonary disease requiring home oxygen. 4. Hypertension. 5. Post-polio syndrome. RECOMMENDATIONS: 1. Continue amiodarone and decreased to 200 mg p.o. b.i.d. for another week then to 200 mg p.o. daily. 2. Add Megace to see if appetite can be enhanced. 3. Consider merits of anticoagulation. Our decision to anticoagulate is complicated by metastatic lung cancer and debility. cc: MD Antonio Wilson MD
[2019-05-31] MEDS: XOPENEX NEB INH PRN (15:56)
[2019-05-31] MEDS: MEGACE PO SCH (16:32)
[2019-06-01] MEDS: OXY IR PO PRN ×3 (04:44→17:02)
[2019-06-01] MEDS: ROCEPHIN 1 GM in NS 50 ML IV SCH (06:30)
--- NOTE | 2019-06-01 07:25 | PROGRESS NOTE ---
DATE: 06/01/2019 SUBJECTIVE: Mr. Nunes is doing better. Chest congestion and cough improving. No high-grade fever or chills. Denied any nausea or vomiting. No unusual cough. The patient does have cough with scanty sputum production. No seizure-type episode. EGD results reviewed and discussed with the patient. OBJECTIVE: Vital signs: Noted. Neck: Is supple. No JVD. Lungs: Bibasilar crepitations, occasional wheezing. CVS: S1 and S2 heard. Abdomen: Soft, scaphoid. Bowel sounds present. SEED CLEANING MACHINE OPERATOR: Alert, awake, able to move all 4 limbs. LABORATORY DATA: Done yesterday noted. CONSIDERATION: Acute bronchitis, COPD exacerbation, questionable seizure, chronic pain, gastritis. PLAN: Plan is to continue current treatment. Patient is eager to go home. I am going to get a chest x-ray done today. After reviewing the results, we will make necessary recommendations. cc: Antonio Diaz MD
--- NOTE | 2019-06-01 07:29 | Diag Imaging Result Doc PS360 ---
EXAM: CHEST-PORTABLE INDICATION: sob TECHNIQUE: 2 views COMPARISON: 05/29/2019 FINDINGS: The right chest port is in stable position. There is suggestion of COPD and there are right perihilar fibrotic changes and fibrotic changes along the minor fissure that are stable. No new consolidation is identified. Cardiac silhouette is stable. IMPRESSION: Essentially stable chest. Electronically signed by Wayne Montenegro 06/01/2019 7:27 AM
[2019-06-01] MEDS: LOVENOX SUBQ SCH (08:34)
[2019-06-01] MEDS: CORDARONE PO SCH (08:35)
[2019-06-01] MEDS: MIRALAX PO SCH (08:35)
[2019-06-01] MEDS: NICODERM PATCH TD SCH (08:36)
[2019-06-01] MEDS: PREDNISONE PO SCH (08:36)
[2019-06-01] MEDS: MEGACE PO SCH ×3 (08:36→16:32)
[2019-06-01] MEDS: NEXIUM IV SCH (09:40)
[2019-06-01] MEDS: XANAX PO PRN (11:06)
[2019-06-01] MEDS: XOPENEX NEB INH PRN ×2 (11:32→16:04)
[2019-06-01 12:12] VITALS: BP 89/62
[2019-06-01] MEDS ORDERED: CORDARONE PO SCH (14:42)
[2019-06-01] MEDS ORDERED: ASPIRIN PO SCH (14:45)
[2019-06-01] MEDS ORDERED: SODIUM CHLORIDE 0.9% INJ SCH (14:45)
--- NOTE | 2019-06-01 14:55 | PROGRESS NOTE ---
DATE: 06/01/2019 SUBJECTIVE: Patient relates feeling somewhat better today. Appetite has improved. He continues without chest discomfort or shortness of breath on supplemental oxygen by nasal cannula. He remains in sinus rhythm. OBJECTIVE: Blood pressure 90/60, heart rate 89 and regular, with ECG monitor showing sinus rhythm. There is no significant jugular venous distention. Chest is clear to auscultation. Cardiac Examination: Reveals a regular rate and rhythm without appreciable murmur or gallop. There is no evidence of peripheral edema. IMPRESSION: 1. Paroxysmal atrial fibrillation. Patient continues in sinus rhythm on amiodarone. 2. Metastatic lung cancer. 3. Severe chronic obstructive pulmonary disease requiring home oxygen. 4. Hypertension. 5. Postpolio syndrome. RECOMMENDATIONS: 1. Continue amiodarone at 200 mg p.o. b.i.d. with plans to reduce to 200 mg p.o. daily. 2. Consider anticoagulation. The decision to anticoagulate is complicated by metastatic lung cancer and debility. cc: MD Antonio Wilson MD
[2019-06-02] MEDS ORDERED: PROTONIX PO SCH (07:00)
[2019-06-02] MEDS ORDERED: PROTONIX IV SCH (09:00)
--- NOTE | 2019-06-03 05:36 | DISCHARGE SUMMARY ---
ADMISSION DATE: 05/29/2019 DISCHARGE DATE: 06/01/2019 FINAL DISCHARGE DIAGNOSES: 1. Altered mental status. 2. Unresponsiveness. 3. Atrial fibrillation with rapid ventricular response. 4. Questionable seizure. 5. Chronic obstructive pulmonary disease. 6. History of lung cancer. 7. Anxiety disorder. 8. Post-polio syndrome. 9. Chronic pain. 10. Gastritis and reflux disease. 11. Situational depression. HISTORY OF PRESENT ILLNESS: Mr. Nunes is a 59-year-old white gentleman. The patient was found to be unresponsive at home. He did have some jerking movements at home. Telemetry revealed atrial fibrillation with rapid ventricular response. Initially, patient was admitted to the ICU. Cardiology consult obtained with Dr. Jin. The recommendations were reviewed. The patient was treated appropriately. The patient was transferred to [facility]. His clinical condition gradually improved and stabilized. The patient did have some chest congestion and cough. The patient also had some fever suggestive of bronchitis and COPD exacerbation. The patient was given prednisone IV antibiotics and bronchodilator treatment. The patient was doing much better, and I decided to discharge him home. Discussed at length with the patient about smoking cessation. Follow up with me in a week's time. Continue bronchodilator treatment. Also, discussed his CEA level was elevated. He is scheduled to have PET scan and they will discuss with his oncologist. Continue home oxygen. LABORATORY DATA: Hemoglobin 11.9 and hematocrit 39.6. WBC count 5.12 and platelet count 142,000. Electrolytes were fairly benign. CEA level was 4.5. Patient's chest x-ray stable chest. The patient had a CT scan of the head done which was negative for acute lesion. DISCHARGE CONDITION: Overall discharge condition satisfactory. cc: Antonio Diaz MD
[2019-06-06] MEDS ORDERED: CORDARONE PO SCH (09:00)
== END 2019-06-01 17:32 | disposition home or self-care (01) | DRG 308 ==
LOC: SUPCPDRO → ED 18:44 → SUATTDRO 05-29 01:16 → ICU 05-29 01:16 → 2N 05-30 23:20
PROVIDERS: ADMIT Internal Medicine; ATTEND Internal Medicine